=== PATIENT | female | born 1955 | race Caucasian/White ===

== ENCOUNTER → 2019-06-20 16:39 | Outpatient (BNVA) | payer OTHER, SELFPAY | PROVIDERS: Family Provider Family Medicine; PCP Family Medicine; Visit Provider Nurse Practitioner Family | DX: S62.624A Displaced fracture of middle phalanx of right ring finger, initial encounter for closed fracture (principal); X58.XXXA Exposure to other specified factors, initial encounter | CPT/HCPCS: 73130 ==

== ENCOUNTER 2019-07-06 10:32 | Outpatient (CLI) | payer OTHER, SELFPAY ==
--- NOTE | 2019-07-06 10:45 | XR_ITS ---
WS: [id number] LEFT SHOULDER: 3 VIEW(S) TECHNIQUE: Internal and external rotation with Y view. HISTORY: CONTUSION OF LEFT SHOULDER, INITIAL ENCOUNTER COMPARISON: None available. No fracture or dislocation or soft tissue abnormality. Mild narrowing of the AC joint with hypertrophic changes involving the distal clavicle. Mild atherosclerosis aorta. XR/XR shoulder LT min 2V* [id number] IMPRESSION: 1. No shoulder fracture identified. 2. Mild AC joint arthritis.
== END 2019-07-06 10:33 | disposition home or self-care (01) ==
LOC: RADWPI 10:34
PROVIDERS: Family Provider Family Medicine; PCP Family Medicine; Visit Provider Family Medicine
DX: S40.012A Contusion of left shoulder, initial encounter (principal); X58.XXXA Exposure to other specified factors, initial encounter; M13.812 Other specified arthritis, left shoulder
CPT/HCPCS: 73030

== ENCOUNTER 2019-07-26 13:21 | Outpatient (RCR) | payer OTHER, SELFPAY | END 2019-08-05 23:59 | disposition home or self-care (01) | LOC: SPT 13:21 | PROVIDERS: Family Provider Family Medicine; PCP Family Medicine; Referring Provider Family Medicine; Visit Provider Family Medicine | DX: S40.012A Contusion of left shoulder, initial encounter (principal); W19.XXXA Unspecified fall, initial encounter | CPT/HCPCS: 97110; 97162 ==

== ENCOUNTER 2019-08-06 06:00 | Outpatient (RCR) | payer OTHER, SELFPAY | END 2019-08-10 13:59 | disposition home or self-care (01) | LOC: SPT 06:00 | PROVIDERS: Family Provider Family Medicine; PCP Family Medicine; Referring Provider Family Medicine; Visit Provider Family Medicine | DX: Z01.89 Encounter for other specified special examinations (principal) ==

== ENCOUNTER 2019-12-01 06:54 | Outpatient (CLI) | payer OTHER, SELFPAY ==
--- NOTE | 2019-12-01 07:02 | CT_ITS ---
WS: [id number] CT ABDOMEN AND PELVIS WITH CONTRAST HISTORY: VOMITING TECHNIQUE: Imaging performed of the abdomen and pelvis with IV contrast. Single phase imaging of the abdomen. Coronal and sagittal reformats are submitted. All CT scans at [facility] use at least one of these dose optimization techniques: automated exposure control; mA and/or kV adjustment per patient size (includes targeted exams where dose is matched to clinical indication); or iterativ e reconstruction. IV CONTRAST: Visipaque 320; 95 mL IV. Oral contrast: Yes. DLP: 1284.99 mGy.cm COMPARISON: 07/31/2018 Lower thorax: Lung bases are clear. Heart is normal size. Moderate size hiatal hernia. Liver/biliary system: Normal size with no intrahepatic dilatation. Gallbladder: Normal. No gallstones or wall thickening. No pericholecystic fluid. Pancreas: Normal. Spleen: Normal. Adrenal glands: Normal. Right kidney: Mild atrophy of the RIGHT kidney at 8.8 cm. There are several hypodensities scattered t hroughout the renal cortex. The largest at 1.0 cm in the upper pole. No obstruction. Left kidney: Mild cortical thinning and atrophy. No mass or obstruction. Aorta: Mild atherosclerosis with no aneurysm. Lymphadenopathy: None. Free fluid: None. GI tract: Normal appendix. Prior gastric bypass surgery. No evidence for GI tract obstruction. There is mild persistent mucosal thickening involving the hepatic flexure. Neoplasm not excluded. Sigmoid d iverticulosis without diverticulitis. Abdominal wall: Unremarkable abdominal wall. No hernia. Pelvis: Prior hysterectomy. No free fluid or adenopathy. Urinary bladder is negative. Bones: Mild LEFT convex curvature lumbar spine. CT/CT abdomen pelvis w con* [id number] IMPRESSION: 1. No renal obstruction. 2. Normal appendix. 3. Prior gastric bypass. 4. Mild persistent mucosal thickening involving the hepatic flexure with no ob struction. Neoplasm is not excluded. 5. Mild renal atrophy.
[2019-12-01 07:43] LABS: Blood Urea Nitrogen 24 mg/dL (8-23); Glomerular Filtration Rate 35.3 mL/min (90-130)
[2019-12-01] MEDS: iodixanol 320 mg/mL 100mL Btl IV (08:24)
[2019-12-01] MEDS: barium sulfate 450 mL Oral Susp PO (08:57)
== END 2019-12-01 06:55 | disposition home or self-care (01) ==
LOC: RAD 06:54
PROVIDERS: PCP Family Medicine; Visit Provider Family Medicine
DX: R11.0 Nausea (principal); R11.10 Vomiting, unspecified; N26.1 Atrophy of kidney (terminal); Z98.84 Bariatric surgery status
CPT/HCPCS: 36415; 74177; 82565; 84520

== ENCOUNTER 2019-12-14 06:54 | Day surgery (SDC) | payer OTHER, MEDICARE, SELFPAY ==
[2019-12-14] VITALS (8 sets, daily range): BP systolic 135–175; BP diastolic 64–84; PULSE 45–62; RESP 14–19; TEMP 36.2–36.5; O2SAT 95–99
[2019-12-14] MEDS: sodium chloride 0.9% 1,000 ML 30 ML IV (07:33)
--- NOTE | 2019-12-14 07:34 | ANES.PREANE2 ---
Pre-Anesthetic Assessment Pre-Anesthetic Assessment: Height/Weight: Height 1.68 m Weight 90.265 kg Temp Pulse Resp BP Pulse Ox 97.5 F L 52 L 18 148/64 98 12/14/19 07:11 12/14/19 07:11 12/14/19 07:11 12/14/19 07:11 12/14/19 07:11 Proposed Procedure: Operation Date: 12/14/19 08:30 Proposed Procedures p Laparoscopic Cholecystectomy possibly open(Not Applicable) - Davide Catherine MD Last intake: Intake Last Liquid Date 12/13/19 Last Liquid Time 23:59 Last Solid Date 12/13/19 Last Solid Time 19:00 Social: Social History: No alcohol and No tobacco Exam: Pre-Anes Outpt Exam: alert, oriented x 3, clear to auscultation bilaterally and regular rate & rhythm Airway: Submandibular: WNL Cervical ROM: WNL MP: 1 Dentition: Other (mult missing) History/ROS: No significant history except as noted Pulmonary: Pulmonary: None reported CV/HEM: CV/HEM: HTN : : None reported Hepatic: Hepatic: None reported GI: GI: GERD Metabolic: Metabolic: None reported Musc/skel: Musc/skel: None reported Neuropsych: Neuropsych: Anxiety and Depression Anesthetic Plan: ASA status: 2 Anesthesia: Anesthesia Evaluation and General Risk of > 500 ml blood loss (7ml/kg in children): No Meds/Allergies Current Medications: Current Medications Generic Name Dose Route Start Last Admin Trade Name Freq PRN Reason Stop Dose Admin Sodium Chloride 1,000 mls @ 30 ml s/hr 12/14/19 07:15 12/14/19 07:33 Sodium Chloride 0.9% IV 12/15/19 07:14 30 mls/hr .Q24H JOSIAH Administration PFSH Anesthesia PFSH: Social History Smoking and tobacco status: never smoked Alcohol intake: never 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
--- NOTE | 2019-12-14 07:41 | ECG_ITS ---
[facility] Test Date: 2019-12-14 Pat Name: Lory Jean Department: Room: Gender: Female Orthopedic Assistant: : 1955 Requested By: Davide Ness Order Number: [id number] MD: Stacy Kent M.D. Measurements Intervals [place] Rate: 46 P: 81 VA: 201 QRS: 42 QRSD: 94 T: 28 QT: 486 QTc: 427 Interpretive Statements SINUS BRADYCARDIA NONSPECIFIC T-WAVE ABNORMALITY Compared to ECG 10/07/2017 13:31:59 T-wave abnormality now present Sinus rhythm no longer present Electronically Signed On 12-14-2019 17:19:15 CDT by Stacy Kent M.D. [id number]
--- NOTE | 2019-12-14 08:18 | W.PM.OPSUD ---
Surgery/Procedure H&P Update DATE OF PROCEDURE: December 14, 2019 DATE H&P PERFORMED: 12/12/19 H&P UPDATE INFORMATION: No changes to prior documentation CHANGES TO PREVIOUS DOCUMENTATION: EKG cleared by Dr. Wellington from anesthesia preoperatively. PLANNED PROCEDURE: Operation Date: 12/14/19 08:30 Proposed Procedures p Laparoscopic Cholecystectomy possibly open(Not Applicable) - Davide Catherine MD
[2019-12-14 09:19] LABS: Alanine Aminotransferase 8 U/L (0-33); Alkaline Phosphatase 173 IU/L (35-105); Aspartate Amino Transferase 14 U/L (0-32); Total Bilirubin 0.6 mg/dL (0.15-1.2)
--- NOTE | 2019-12-14 09:37 | PM.OP ---
Operative Report Date of procedure: December 14, 2019 Pre-op Diagnosis: Symptomatic cholelithiasis. Post-op diagnosis: same Procedure Done: Laparoscopic cholecystectomy. Specimens removed/disposition: Gallbladder. Surgeon: Davide Catherine Anesthesia: General Estimated blood loss (mL): 5 Complications: None. Condition: stable Disposition: PACU Procedure: The patient was brought to the Operating Room and was placed in a supine position on the Operating Room table. General endotracheal anesthesia was induced. The abdomen was prepped and draped in a sterile fashion. A small vertical incision was carried out in the inferior aspect of the umbilicus. Blunt dissection was carried out down to the fascia, which was grasped with a Bright clamp. A stay suture of 0 Vicryl was placed on either side of the midline and the midline fascia was incised. The underlying peritoneum was opened bluntly and the Tessie port was placed directly into the peritoneal cavity and was held in place with the inflatable balloon. The peritoneal cavity was insufflated with carbon dioxide. The laparoscope was used to inspect the abdominal cavity. The patient had some adhesions to the right mid abdomen which were eventually taken down. No other gross abnormalities were initially noted. A 5 millimeter port was placed in the epigastrium under direct vision. Two 5-millimeter ports were placed on the right side of the abdomen under direct vision. The gallbladder was grasped and was elevated. The patient had adhesions along the fundus and infundibular region of the gallbladder. These were all taken down using blunt dissection with some cautery to maintain hemostasis. Blunt dissection and hydrodissection were carried out in the infundibular region of the gallbladder and the cystic duct and cystic artery were identified. The gallbladder was partially removed from the liver bed using cautery and the spatula to confirm the anatomy before the structures were clipped and divided. The gallbladder was then removed from the liver bed using cautery and the spatula. After the gallbladder had been removed from the liver bed, the laparoscope was moved to the epigastric port and the gallbladder was removed from the peritoneal cavity through the umbilical port site. The stay sutures of Vicryl were tied to each other at the umbilicus. An additional sytbcr-el-efnhy suture of 0 Vicryl was placed, closing the defect so that it was airtight. The perihepatic spaces were irrigated with saline and the liver bed was reinspected. No ongoing problems were seen. The remaining ports were removed from the abdominal wall and the pneumoperitoneum was evacuated. All skin incisions were closed using inverted interrupted sutures of 4-0 Vicryl. Benzoin and Steri-Strips were placed over the incisions and Band-Aids followed. The patient was taken to the Recovery Area in stable condition postoperatively.
--- NOTE | 2019-12-14 10:06 | SUR.PHASEI ---
PT AWAKES AND DENIES PAIN AND NAUSEA, TAKING FEW ICE CHIPS PT ON RA TRIAL
[2019-12-14] MEDS: HYDROcodone-acetaminophen 5-325 mg Tablet 1 TAB PO (11:06)
== END 2019-12-14 11:50 | disposition home or self-care (01) ==
PROVIDERS: PCP Family Medicine; Visit Provider Surgery
PROC: 0FT44ZZ Resection of Gallbladder, Percutaneous Endoscopic Approach (ICD-10-PCS; CPT 47562; principal; 2019-12-14 08:30)
DX: K80.10 Calculus of gallbladder with chronic cholecystitis without obstruction (principal); I10 Essential (primary) hypertension; K21.9 Gastro-esophageal reflux disease without esophagitis; M79.7 Fibromyalgia
CPT/HCPCS: 47562; 12345; 36415; 80076; 88304; 93005; J0690; J1100; J1885; J2405; J2704; J2710; J3010; J3490; J7030

== ENCOUNTER 2020-03-08 06:08 | Day surgery (SDC) | payer OTHER, MEDICARE, SELFPAY ==
[2020-03-07 16:25] VITALS: BMI 31.9
[2020-03-08] VITALS (18 sets, daily range): BP systolic 106–175; BP diastolic 62–89; PULSE 50–69; RESP 16–22; TEMP 36.5–37.1; O2SAT 93–100
[2020-03-08] MEDS: sodium chloride 0.9% 1,000 ML 30 ML IV (06:52)
--- NOTE | 2020-03-08 07:36 | W.PM.OPSUD ---
Surgery/Procedure H&P Update DATE OF PROCEDURE: March 08, 2020 DATE H&P PERFORMED: 03/07/20 H&P UPDATE INFORMATION: I have reviewed H&P completed within last 30 days PREOP DIAGNOSIS: Nausea and vomiting PLANNED PROCEDURE: Operation Date: 03/08/20 07:30 Proposed Procedures p EGD(Not Applicable) - Jed Raymond MD
--- NOTE | 2020-03-08 07:51 | ANES.PREANE2 ---
Pre-Anesthetic Assessment Pre-Anesthetic Assessment: Height/Weight: Height 1.68 m Weight 89.811 kg Temp Pulse Resp BP Pulse Ox 98.8 F 51 L 16 135/62 100 03/08/20 06:35 03/08/20 06:35 03/08/20 06:35 03/08/20 06:35 03/08/20 06:35 Preop Diagnosis: Nausea and vomiting Proposed Procedure: Operation Date: 03/08/20 07:30 Proposed Procedures p EGD(Not Applicable) - Jed Raymond MD Was Beta [place] taken within 24 hours: Yes Last intake: Intake Last Liquid Date 03/07/20 Last Liquid Time 23:00 Last Solid Date 03/07/20 Last Solid Time 19:00 Social: Social History: No alcohol and No tobacco Exam: Pre-Anes Outpt Exam: alert, oriented x 3, clear to auscultation bilaterally and regular rate & rhythm History/ROS: No significant history except as noted and No significant complaints Pulmonary: Pulmonary: None reported CV/HEM: CV/HEM: HTN : : None reported Hepatic: Hepatic: None reported GI: GI: None reported Metabolic: Metabolic: None reported Musc/skel: Musc/skel: None reported Neuropsych: Neuropsych: None reported Anesthetic Plan: ASA status: 2 Anesthesia: MAC Risk of > 500 ml blood loss (7ml/kg in children): No Meds/Allergies Current Medications: Current Medications Generic Name Dose Route Start Last Admin Trade Name Freq PRN Reason Stop Dose Admin Sodium Chloride 1,000 mls @ 30 ml s/hr 03/08/20 06:45 03/08/20 06:52 Sodium Chloride 0.9% IV 03/09/20 06:44 30 mls/hr .Q24H JOSIAH Administration PFSH Anesthesia PFSH: Social History Smoking and tobacco status: never smoked Alcohol intake: never 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
--- NOTE | 2020-03-08 08:33 | XR_ITS ---
WS: [id number] Portable AP upright chest, 03/08/2020 Clinical Data: POST OP Comparison: Portable chest, 05/20/2019. Findings: No nodules, masses or effusions are seen. The heart is normal. The pulmonary vascularity is not increased. No pneumonia or pneumothorax is seen. Minimal atelectatic changes are seen adjacent t o the left heart border. Monitor leads on the chest wall. XR/XR chest 1V portable [id number] Impression: Negative chest.
--- NOTE | 2020-03-08 10:10 | P.CONIM_ITS ---
Providers/Reason For Consult Consulting Physican/Specialty*: Dr. Sommers Datar/Pulmonology Reason for Consult*: possible aspiration of foreign body Requesting Physcian: Debbi Martin MD Attending Physician: Jed Raymond MD Primary Care Provider: Jed Raymond MD History of Present Illness History of Present Illness Lory Jean is a 64 year old female had endoscopy today morning for nausea vomiting and found to have a large wad of in her stomach in addition to other food products. Gums stuck to endoscope and while trying to slowly pull the suddenly patient had a brief oxygen desaturations and got intubated to protect her airway. Later patient saturations improved, Postprocedure chest x-ray was normal and she was extubated. And postop anesthesia were concerned and pulmonary were consulted to make sure if there is no aspiration of gum. In the preop area patient was awake alert oriented and him denied any difficulty breathing. Examination did not reveal any significant localized wheezing. Would prefer to do a bronchoscopic inspection to to rule out aspiration of foreign body and would like to retry if anything present. Review of Systems General: Reports: 10 or more systems reviewed and unremarkable except in HPI and below Meds/Allergies Home Medications and Allergies Home Medications Medication Instructions Recorded Confirmed Last Taken Type clozapine 25 mg tablet 25 mg PO BID 06/20/19 03/08/20 03/07/20 History escitalopram oxalate 10 mg tablet 10 mg PO ONCE 06/20/19 03/08/20 03/07/20 History diphenhydramine HCl [Benadryl] 75 mg PO BEDTIME 12/13/19 03/08/20 03/07/20 History lisinopril-hydrochlorothiazide 1 tab PO DAILY 12/13/19 03/08/20 03/07/20 History propranolol 40 mg PO BID 12/13/19 03/08/20 03/07/20 History Allergies Allergy/AdvReac Type Severity Reaction Status Date / Time adhesive Allergy ALGY-Rash Verified 12/13/19 11:21 morphine Allergy ALGY-Anaphy Verified 08/09/19 09:27 laxis Penicillins Allergy ALGY-Rash Verified 08/09/19 09:27 Current Medications Current Medications Generic Name Dose Route Start Last Admin Trade Name Freq PRN Reason Stop Dose Admin Sodium Chloride 1,000 mls @ 30 mls/hr 03/08/20 06:45 03/08/20 09:41 Sodium Chloride 0.9% IV 03/09/20 06:44 Infused .Q24H JOSIAH Infusion PFSH Acute PFSH: Social History Smoking and tobacco status: never smoked Alcohol intake: never 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 Vitals/I&O/Wt Last Vital Signs Temp 98 F 03/08/20 09:15 Pulse 50 L 03/08/20 09:20 Resp 16 03/08/20 09:20 BP 175/75 03/08/20 09:20 Pulse Ox 96 03/08/20 09:20 03/07/20 03/08/20 03/08/20 22:59 06:59 14:59 Intake Total 900 / 900 Output Total 0 / 0 Balance 900 / 900 Weight last 48 hrs Weight 198 lb Physical Exam Narrative: EXAM NARRATIVE: General: alert, NAD HEENT: conj clear, EOMI, PERRL, mmm, Neck: supple, no meningismus Heme: no cervical LAP Pulmonary: CTAB, no wheezing, rhonchi, crackles Cardiovascular: rrr, nl s1s2, no mrg Abdomen: soft, nt, nd, no r/g, bs+ Extremities: pulses +, no edema, no c/c : no CVA tenderness Skin: intact, no rash MSK: no back or neck pain Neurologic: grossly intact Data Other Data: Other data: Reviewed A&P Assessment and plan (1) Foreign body aspiration: Status: Acute Qualifiers: Encounter type: initial encounter Qualified Code(s): T17.900A - Unspecified foreign body in respiratory tract, part unspecified causing asphyxiation, initial encounter Consult Attestations Medical Necessity Statement: Bronchoscopic inspection of possible aspiration of chewing gum Coding Level of Care Code New Pt Acute Telegrapher Agent for Chg Fwd Patient Type New History Comprehensive Exam Detailed Medical Decision Making Moderate Complexity Diagnoses Foreign body aspiration T17.900A Encounter type: initial encounter Time Spent (min) 30
--- NOTE | 2020-03-08 10:42 | P.MISC_ITS ---
Miscellaneous Note Purpose of Documentation: Intraoperative event Note: During patient's EGD it was determined that she had swallowed gum and gum became adhered to scope. Upon removal of scope I was told she may have had laryngospasm, but she did de-sat and this required intubation. Unfortunately patient was extubated and brought to PACU. The patient is doing well clinically in recovery, but does have some cough. I am concerned of the possibility of aspiration of bits of chewing gum. CXR is wnl, but this was obtained immediately after the event and gum is not radio-opaque. Consulted Dr. Esposito big data analytics lead and we agree best course of action is to do bronchscopy to rule out any aspiration of gum bits. Patient informed. She understands. She states she swallowed this gum last night at about 5:00 pm. Apparently this is somewhat of a habit for her. Her , at bedside, said I told you to stop doing that. Patient responded, I don't have anyone to blame but myself.
--- NOTE | 2020-03-08 13:56 | PM.OP ---
Operative Report Date of procedure: March 08, 2020 Pre-op Diagnosis: Nausea and vomiting Condition: stable Disposition: same day Procedure: BRONCHOSCOPY PROCEDURE NOTE Pre-operative diagnosis: Concern for possible aspiration of chewing gum Indication: possible aspiration of chewing gum Technical Assistant: Datar Procedure(s): Fiberoptic bronchoscopy: yes Route: Through ET tube Medications: General anesthesia as per anesthesia team Intra-operative Monitoring and treatment: Telemetry, continuous pulse oximetry, Blood pressure monitoring, Oxygen. Fluoroscopy:no Technical procedure: Flexible bronchoscopy inserted through the ET tube and distal trachea and main clarisse looked normal. Then the flexible bronchoscope passed through right mainstem, upper lobe and subsegments, bronchus intermedius, superior segment of lower lobe, all basal segments, middle lobe and subsegments visualized with flexible bronchoscopy to the most distal possible subsegments appeared normal mucosa with no foreign body material; some bronchomalacia noted in the distal airways. Scope then passed through left mainstem, upper lobe and subsegments, lingula and Subsegments, superior segment of lower lobe, all basal segments, visualized with flexible bronchoscopy to the most distal possible subsegments appeared normal mucosa with no foreign body material; mucus noted in the lingula was suctioned away and some bronchomalacia noted in the distal airways throughout. Complications: None Post-op Diagnosis: No foreign body noticed within the reach of the flexible bronchoscope used. Associated Problem List Diagnoses (1) Foreign body aspiration: Qualifiers: Encounter type: initial encounter Qualified Code(s): T17.900A - Unspecified foreign body in respiratory tract, part unspecified causing asphyxiation, initial encounter
--- NOTE | 2020-03-08 14:20 | ANE.PACU2 ---
Inpatient post-anesthesia follow up: Airway intact: Yes Vital signs: Temperature 97.7 F Pulse Rate 65 Respiratory Rate 18 Blood Pressure 165/75 Pulse Oximetry 94 Oxygen Delivery Me thod Room Air Oxygen Flow Rate 8 Fraction of Inspir ed Oxygen Hydration adequate: Yes Nausea and vomiting: No Pain level: 2 Mental status: Baseline Additional Comments: Patient tearful about her long-term symptoms of nausea and vomiting.
== END 2020-03-08 14:48 | disposition home or self-care (01) ==
PROVIDERS: Internal Medicine Pulmonary Disease; PCP Family Medicine; Visit Provider Family Medicine
PROC: 0DJ08ZZ Inspection of Upper Intestinal Tract, Via Natural or Artificial Opening Endoscopic (ICD-10-PCS; CPT 43235; principal; 2020-03-08 07:30)
PROC: 0BJ08ZZ Inspection of Tracheobronchial Tree, Via Natural or Artificial Opening Endoscopic (ICD-10-PCS; CPT 31622; principal; 2020-03-08 13:00)
DX: R11.2 Nausea with vomiting, unspecified (principal); T17.900A Unspecified foreign body in respiratory tract, part unspecified causing asphyxiation, initial encounter; K29.50 Unspecified chronic gastritis without bleeding; K31.89 Other diseases of stomach and duodenum; I10 Essential (primary) hypertension
CPT/HCPCS: 12345; 31622; 43239; 71045; 88305; J0330; J2405; J2704; J3010; J3490; J7030

== ENCOUNTER 2020-08-05 13:11 | Emergency (ER) | payer OTHER, MEDICARE, SELFPAY ==
[2020-08-05 13:16] VITALS: BP 139/67; PULSE 59; RESP 14; TEMP 36.8; O2SAT 98; BMI 31.6
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
--- NOTE | 2020-08-05 13:30 | ECG_ITS ---
[facility] Test Date: 2020-08-05 Pat Name: Lory Jean Department: Room: Gender: Female Cider Maker: : 1955 Requested By: Tenzin Mercado Order Number: [id number] Fierro MD: Silver Doyle M.D. Measurements Intervals Donora Rate: 56 P: 55 NV: 139 QRS: 67 QRSD: 91 T: 44 QT: 446 QTc: 432 Interpretive Statements SINUS RHYTHM NONSPECIFIC T-WAVE ABNORMALITY Compared to ECG 12/14/2019 07:44:05 Sinus bradycardia no longer present T-wave abnormality still present Electronically Signed On 08-05-2020 18:51:47 ESTATE PLANNING ATTORNEY by Silver Doyle M.D. [email or web address]
[2020-08-05 13:36] LABS: Basophils % 0.7 %; Eosinophils # 0.1 10^3/uL (0.0-0.8); Eosinophils % 1.7 %; Hematocrit 36.6 % (37.0-47.0); Hemoglobin 11.2 g/dL (11.5-15.3); Lymphocytes # 1.6 10^3/uL (0.8-4.8); Lymphocytes % 26.8 %; Mean Corpuscular HGB Conc 30.6 g/dL (30.0-36.0); Mean Corpuscular Hemoglobin 28.8 pg (28.0-34.0); Mean Corpuscular Volume 94.1 fL (81-99); Mean Platelet Volume 11.8 fL (7.4-10.4); Monocytes # 0.5 10^3/uL (0.2-0.9); Monocytes % 7.8 %; Neutrophils % 62.8 %; Nucleated Red Blood Cells % 0 %; Platelet Count 243 10^3/cmm (130-400); Red Blood Count 3.89 10^6/uL (4.1-5.3); Red Cell Distribution Width 13.3 % (12.1-15.1)
[2020-08-05] MEDS: LORazepam 1 mg Tablet PO (13:38)
[2020-08-05 13:40] VITALS: BP 170/73; PULSE 59; RESP 15; O2SAT 95
[2020-08-05 13:52] LABS: Alanine Aminotransferase 7 U/L (0-33); Albumin Level 4.1 g/dL (3.5-5.2); Alkaline Phosphatase 186 IU/L (35-105); Anion Gap 13.4 (5-19); Aspartate Amino Transferase 15 U/L (0-32); Blood Urea Nitrogen 18 mg/dL (8-23); Calcium 9.3 mg/dL (8.5-10.5); Carbon Dioxide 28 mmol/L (22-29); Chloride 102 mmol/L (98-107); Globulin 2.7 g/dL (1.3-4.6); Glomerular Filtration Rate 45.5 mL/min (90-130); Glucose 87 mg/dL (65-115); Osmolality Calculated 291 mOsm/kg (285-295); Potassium 3.4 mmol/L (3.5-5.1); Sodium 140 mmol/L (136-145); Total Bilirubin 0.7 mg/dL (0.15-1.2); Total Protein 6.8 g/dL (6.6-8.7)
[2020-08-05 13:58] LABS: Troponin(5th) Baseline 8 ng/L (0-10)
[2020-08-05] MEDS: sodium chloride 0.9% 500 ML 999 ML IV (14:37)
[2020-08-05] MEDS: ketorolac 30 mg/mL INJ IVP (14:40)
[2020-08-05 14:46] VITALS: BP 132/57; PULSE 59; RESP 16; O2SAT 97
[2020-08-05 15:44] LABS: Troponin 5 2HR 8.12 ng/L (0-10); Troponin 5 2HR Delta 0.12 ABS# (0-10)
[2020-08-05 15:50] VITALS: BP 132/57; PULSE 57; RESP 16; O2SAT 97
== END 2020-08-05 15:52 | disposition home or self-care (01) ==
PROVIDERS: Emergency Provider Physician Assistant; PCP Family Medicine
DX: S13.4XXA Sprain of ligaments of cervical spine, initial encounter (principal); V57.5XXA Driver of pick-up truck or van injured in collision with fixed or stationary object in traffic accident, initial encounter
CPT/HCPCS: 36415; 70450; 71045; 72125; 73130; 73562; 80053; 84484; 85025; 93005; 96374; 99284; J1885; J7040

== ENCOUNTER 2020-09-30 07:32 | Outpatient (CLI) | payer OTHER, MEDICARE, SELFPAY ==
--- NOTE | 2020-09-30 07:50 | NMCV_ITS ---
NM seth perf SPECT r/s* [id number] Lory Jean Age: 64 Gender: F : 1955 Exam Date: 09/30/2020 08:30 Ordering Phys: Silver Doyle M.D ([email or web address]) Technologist: CHAGO De La Fuente Exam Location: [facility] Indications: Chest pain STRESS TEST Please see separate stress test report in [facility] for full findings IMAGE PROTOCOL Rest/Stress 1 Lexiscan Day Radiopharmaceutical Dose (mCi) Administration Site Administered by Rest: Tc-99m 10.8 IV CHAGO De La Fuente Sestamibi Stress:Tc-99m 32.7 IV CHAGO Jimenes Sestamibi Rest: 30-Sep-2020 60 Discovery 630 Stress: 30-Sep-2020 45 Discovery 630 0.4mg Lexiscan. Images obtained in supine and prone position. SPECT RESULTS Technical Quality: Good Raw Data Analysis: Normal Image Corrections: No attenuation or motion correction applied Summed Stress Score: 0 Summed Rest Score: 0 Summed Difference Score: 0 PERFUSION FINDINGS SPECT images demonstrate homogeneous tracer distribution throughout the myocardium. FUNCTIONAL RESULTS (calculated via Gated SPECT) Stress Image LV EF (%): 72 Stress EDV (mL):81 TID: 1.07 Stress ESV (mL):23 FUNCTIONAL FINDINGS: There is normal left ventricular systolic function. IMPRESSIONS 1. Normal myocardial perfusion imaging with no evidence of ischemia 2. Normal LV systolic function Silver Doyle MD (Electronically Signed) Final Date: 30 September 2020 11:31 S
--- NOTE | 2020-09-30 07:50 | ECG_ITS ---
Test Date: 2020-09-30 Pat Name: Lory Jean Department: Room: Gender: Female Dog Track Kennel Manager: Kaelyn Bustamante : 1955 Requested By: Silver Doyle Order Number: [id number] Sri MD: Silver Doyle M.D. Interpretive Statements NAME OF STUDY: LEXISCAN SESTAMIBI STRESS TEST INDICATION: [Chest Pain] Procedure: At the baseline, the blood pressure was 126/72 mmHg with a heart rate of 45 bpm. The electrocardiogram showed normal sinus rhythm, normal axis with normal ST and T's. The Lexiscan was infused over a period of 20 seconds. A total of 0.4 mg of Lexiscan was infused. The stress phase was continued for a total of 5 minutes. Heart rate was at the end of stress phase was 67 bpm and a blood pressure of 152/76 mmHg. The EKG at the peak infusion revealed since normal sinus rhythm with no significant ST-T wave changes. Sestamibi was injected 20 seconds after the Lexiscan infusion. Blood pressure at the end of recovery phase was 142/76 mmHg with a heart rate of 65 bpm. Conclusion: 1. normal EKG response to Lexiscan infusion 2. No Lexiscan induced chest pain or cardiac arrhythmia. 3. Normal blood pressure and heart rate response. 4. Sestamibi/sestamibi perfusion scan pending; see separate report. Electronically Signed On 10-12-2020 12:04:51 CDT by Silver Doyle M.D. [id number]
[2020-09-30 07:51] VITALS: BMI 31.6
[2020-09-30 09:27] VITALS: BP 151/74; PULSE 70
[2020-09-30] MEDS: regadenoson 0.4 Mg/5 ml Syringe IVP (09:27)
== END 2020-09-30 07:33 | disposition home or self-care (01) ==
LOC: CDL 07:35
PROVIDERS: PCP Family Medicine; Visit Provider Internal Medicine
DX: R07.9 Chest pain, unspecified (principal)
CPT/HCPCS: 78452; 93017; A9500; J2785

== ENCOUNTER 2020-10-01 10:55 | Outpatient (CLI) | payer OTHER, MEDICARE, SELFPAY ==
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
== END 2020-10-01 10:56 | disposition home or self-care (01) ==
LOC: US 10:56
PROVIDERS: PCP Family Medicine; Visit Provider Internal Medicine
DX: R55 Syncope and collapse (principal); I65.23 Occlusion and stenosis of bilateral carotid arteries
CPT/HCPCS: 93880

== ENCOUNTER 2021-01-21 09:09 | Outpatient (CLI) | payer OTHER, MEDICARE, SELFPAY ==
[2021-01-21 09:44] VITALS: BP 163/85; PULSE 53; RESP 16; TEMP 36.6; O2SAT 93; BMI 31.6
[2021-01-21 09:59] VITALS: BP 163/85; PULSE 54; RESP 17; TEMP 36.6; O2SAT 93
[2021-01-21 10:56] VITALS: BP 174/83; PULSE 51; RESP 16; TEMP 36.7; O2SAT 93
--- NOTE | 2021-01-31 11:33 | DCPLANNER ---
manager cash had message that patient received the monoclonal antibody infusion. manager cash called and spoke with patient, she stated that after the infusion she is feeling better. Patient stated that before the infusion, she had cold chills, she had a cough, fever and headache. Patient stated that after the infusion she had some really rough days, she had cold chills, she had diarrhea. Patient stated that she is feeling much better.
== END 2021-01-21 09:10 | disposition home or self-care (01) ==
LOC: OPS 09:16
PROVIDERS: PCP Family Medicine; Visit Provider Family Medicine
DX: U07.1 COVID-19 (principal)
CPT/HCPCS: 96365

== ENCOUNTER → 2021-02-04 09:44 | Outpatient (BNVA) | payer OTHER, MEDICARE, SELFPAY | PROVIDERS: PCP Family Medicine; Referring Provider Family Medicine; Visit Provider Specialist | DX: R55 Syncope and collapse (principal); R42 Dizziness and giddiness; R26.9 Unspecified abnormalities of gait and mobility; G43.711 Chronic migraine without aura, intractable, with status migrainosus; S13.4XXA Sprain of ligaments of cervical spine, initial encounter; V89.0XXA Person injured in unspecified motor-vehicle accident, nontraffic, initial encounter | CPT/HCPCS: 99205 ==

== ENCOUNTER 2021-03-04 11:34 | Outpatient (CLI) | payer OTHER, MEDICARE, SELFPAY ==
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
== END 2021-03-04 11:35 | disposition home or self-care (01) ==
LOC: RADSHAW 11:38
PROVIDERS: PCP Family Medicine; Visit Provider Specialist
DX: R55 Syncope and collapse (principal); S13.4XXA Sprain of ligaments of cervical spine, initial encounter; Y93.9 Activity, unspecified
CPT/HCPCS: 70551

== ENCOUNTER → 2021-04-02 10:19 | Outpatient (BNVA) | payer MEDICARE, SELFPAY | PROVIDERS: PCP Family Medicine; Visit Provider Specialist | DX: R55 Syncope and collapse (principal) | CPT/HCPCS: 95816 ==

== ENCOUNTER 2021-11-04 07:00 | Outpatient (RCR) | payer MEDICARE, SELFPAY ==
[2021-10-28] MEDS: iron sucrose 200 MG in sodium chloride 0.9% (100 ml) 100 ML 220 MG IV (09:18)
[2021-10-28 09:45] VITALS: BP 217/79; PULSE 61; RESP 18; TEMP 36.7; O2SAT 98; BMI 29.6
--- NOTE | 2021-10-28 11:17 | PC.NURSE ---
10/27/[address] Medina's RN, Cece, no PA needed. Pt has medicare insurance.
[2021-10-31 08:25] VITALS: BP 209/83; PULSE 57; RESP 18; TEMP 36.4; O2SAT 99
[2021-10-31] MEDS: iron sucrose 200 MG in sodium chloride 0.9% (100 ml) 100 ML 220 MG IV (08:50)
[2021-11-04] MEDS: iron sucrose 200 MG in sodium chloride 0.9% (100 ml) 100 ML 220 MG IV (06:59)
[2021-11-04 07:01] VITALS: BP 191/56; PULSE 57; RESP 18; TEMP 36.6; O2SAT 96
--- NOTE | 2021-11-04 07:46 | PC.NURSE ---
From patient report, attempt to place PICC line in left arm unsuccessful last Wednesday. PICC line to right upper arm still being used without difficulty. Labs drawn yesterday with Vanc trough 17.3. Continuing with Vancomycin 1250 mg IV daily. Pt reports rash to lower legs and back. Very mild redness noted to legs. No redness noted to back. Pt states she has had 3 days worth of redness. Bianca Lainez, PT at bedside applying lymphedema wraps. Bianca states redness looks much better from Wednesday. Pt states she took some Benadryl yesterday.
== END 2021-11-04 23:59 | disposition home or self-care (01) ==
LOC: GILAB 07:00
PROVIDERS: PCP Family Medicine; Visit Provider Surgery
DX: D50.9 Iron deficiency anemia, unspecified (principal)
CPT/HCPCS: 96365; J1756

== ENCOUNTER 2021-11-10 07:19 | Outpatient (RCR) | payer MEDICARE, SELFPAY ==
[2021-11-07] MEDS: iron sucrose 200 MG in sodium chloride 0.9% (100 ml) 100 ML 220 MG IV (09:09)
[2021-11-07 09:42] VITALS: BP 205/89; PULSE 53; RESP 18; TEMP 36.9; O2SAT 95
[2021-11-10] MEDS: iron sucrose 200 MG in sodium chloride 0.9% (100 ml) 100 ML 220 MG IV (07:30)
[2021-11-10 07:32] VITALS: BP 224/76; PULSE 60; RESP 18; TEMP 36.5; O2SAT 98
== END 2021-12-04 23:59 | disposition home or self-care (01) ==
LOC: GILAB 07:19
PROVIDERS: PCP Family Medicine; Visit Provider Surgery
DX: D50.9 Iron deficiency anemia, unspecified (principal)
CPT/HCPCS: 96365; J1756

== ENCOUNTER 2021-11-23 09:52 | Emergency (ER) | payer MEDICARE, SELFPAY ==
[2021-11-23 10:15] VITALS: BP 144/80; PULSE 83; RESP 16; TEMP 37.2; O2SAT 99; BMI 30.7
--- NOTE | 2021-11-23 10:30 | CTR_ITS ---
PROCEDURE INFORMATION: Exam: CT Abdomen And Pelvis Without Contrast Exam date and time: 11/23/2021 11:26 AM Age: 65 years old Clinical indication: Abdominal/lower flank pain. Prior surgery for open abdominal wound status post hernia surgery/tummy tuck on 11/11/21. Postsurgical abdominal pain. TECHNIQUE: Imaging protocol: Computed tomography of the abdomen and pelvis without contrast. Radiation optimization: All CT scans at this facility use at least one of these dose optimization techniques: automated exposure control; mA and/or kV adjustment per patient size (includes targeted exams where dose is matched to clinical indication); or iterative reconstruction. COMPARISON: CT abdomen pelvis w con* [id number] 12/01/2019 8:08 AM RADIATION DOSE METRICS: Total DLP (mGy-cm): 1156.22 FINDINGS: Lungs: There is mild scarring and/or atelectasis at the lung bases. No pericardial effusion. The blood pool is low in attenuation relative to the cardiac muscle suggesting anemia. Small hiatal hernia. Liver: The liver is enlarged measuring 18.4 cm. There is focal fatty infiltration along the anterior aspect of the falciform ligament. Gallbladder and bile ducts: Status post cholecystectomy. Pancreas: The pancreas is unremarkable. Spleen: The spleen is enlarged measuring 13.2 cm. Adrenal glands: The adrenal glands are unremarkable. Kidneys and ureters: A renal cortical calcification is noted on the left. No hydronephrosis. Stomach and bowel: There has been prior gastric bypass. Colonic diverticulosis without evidence of acute diverticulitis. Appendix: The appendix is unremarkable. Intraperitoneal space: No free intraperitoneal air is seen. Vasculature: No abdominal aortic aneurysm. Lymph nodes: No retroperitoneal lymphadenopathy. Urinary bladder: The bladder is largely decompressed. Reproductive: There has been prior hysterectomy. Bones/joints: Hemangiomas in the T11 and L4 vertebral bodies. No acute fracture is seen. Soft tissues: The right rectus sheath hematoma measures 7.4 x 3.1 x 4.3 cm. There is a collection in the right anterior abdominal wall and right flank that contains fluid and gas. This collection measures 18.4 x 3.5 x 7.3 cm. There is a collection involving the left anterior abdominal wall and left flank that measures 21.1 x 4.2 x 8.4 cm. These collections may connect across midline. There is extensive subcutaneous edema in the surrounding soft tissues. There is a separate collection in the ventral pelvic wall on the right that measures 2.3 x 1.2 x 7.1 cm. This may represent an abscess. CT/CT abdomen pelvis wo con [id number] IMPRESSION: 1. Collections in the anterior abdominal wall and flank, bilaterally that may connect across midline. These collections are suspicious for abscesses. There is extensive surrounding edema. Minimal soft tissue gas is seen which may relate to recent surgery. 2. Separate collection in the ventral pelvic wall on the right suspicious for abscess. 3. Right rectus sheath hematoma. 4. Hepatosplenomegaly. 5. Colonic diverticulosis. 6. Probable anemia.
--- NOTE | 2021-11-23 10:35 | W.ED.WOUNDLC ---
HPI - Wound/Laceration General: Chief Complaint: Wound/Laceration Stated Complaint: bleeding Time Seen by Provider: 11/23/21 10:07 Source: patient Mode of arrival: ambulatory Limitations: no limitations History of Present Illness: 65-year-old female who had abdominal surgery on November 11 at [place] for hernia repair. States that she has noticed quite a bit of drainage from her incision. She denies any fevers she has had some slight pain she rates a 3 out of 10 denies any worsening proving factors states the drainage has been purulent in nature. Associated symptoms: Denies chills or fever(s) Review of Systems Const: Denies: fever(s), chills, body aches or change in appetite Eyes: Denies: blurry vision or eye discomfort ENMT: Denies: throat pain or dental pain Card: Denies: chest pain Resp: Denies: dyspnea GI: Reports: abdominal pain : Denies: dysuria Musc: Denies: neck pain or back pain Skin/Breast: Denies: rash Neuro: Denies: headache(s) Psych: Denies: depression Kyle/Lymph: Denies: easy bruising All/Imm: Denies: urticaria PFSH ED PFSH: Medical History Hypertension Family History Other Hypertension Social History Smoking and tobacco status: never smoked Alcohol intake: never 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 Physical Exam Const: COMMON NORMALS: patient oriented x3 HENMT: COMMON NORMALS: normocephalic and atraumatic HEAD & SCALP: normocephalic and atraumatic Eye: COMMON NORMALS: Equal, round and reactive pupils present and EOMs intact bilaterally PUPIL: Yes Equal, round and reactive pupils present Neck/C-Spine: COMMON NORMALS: full ROM and supple Chest: COMMONS NORMALS: normal inspection of the chest and normal palpation of entire chest wall Resp: COMMON NORMALS: normal respiratory effort, No retractions, No use of accessory muscles and clear to auscultation bilaterally AUSCULTATION: clear to auscultation bilaterally Cardio: COMMON NORMALS: regular rate, regular rhythm and No murmurs present (Cardio) RATE: regular rate RHYTHM: regular rhythm GI: COMMON NORMALS: Normal to inspection, nondistended, normoactive bowel sounds present, Soft to palpation, non-tender and no masses PALPATION: Yes Soft to palpation OTHER: Erythema along the abdominal wall incision with purulent drainage Extremity: COMMON NORMALS: normal to inspection and full ROM Neuro: COMMON NORMALS: patient oriented x3, moves all extremities and no focal motor deficits Psych: COMMON NORMALS: mental status grossly normal, Normal thought process present and cooperative THOUGHT PROCESS: Normal thought process present Skin: COMMON NORMALS: no rashes or lesions noted and no wounds GENERAL SKIN EXAM: no rashes or lesions noted Course Vital Signs: Vital signs: Vital Signs Temperature 98.9 F 11/23/21 10:15 Pulse Rate 83 11/23/21 10:15 Respiratory Rate 16 11/23/21 10:15 Blood Pressure 144/80 11/23/21 10:15 Pulse Oximetry 99 11/23/21 10:15 MDM - Wound/Laceration Medical Decision Making Patient presents here with drainage from her abdominal wall incision CT scan does show a likely abscess collection I spoke to patient's plastic surgeon in [place] and will transfer there for plastics along with continuing of care. Lab Data : 11/23/21 11:10 11/23/21 11:10 Radiology Impressions Abdomen/Pelvis CT 11/23/21 10:30 IMPRESSION: 1. Collections in the anterior abdominal wall and flank, bilaterally that may connect across midline. These collections are suspicious for abscesses. There is extensive surrounding edema. Minimal soft tissue gas is seen which may relate to recent surgery. 2. Separate collection in the ventral pelvic wall on the right suspicious for abscess. 3. Right rectus sheath hematoma. 4. Hepatosplenomegaly. 5. Colonic diverticulosis. 6. Probable anemia. ADDENDUM: 11/23/[address] Castillo at 11/23/2021 11:52 AM CDT. Laboratory Results WBC 5.8 10^3/uL (4.0-10.0) 11/23/21 11:10 RBC 3.50 10^6/uL (4.1-5.3) L 11/23/21 11:10 Hgb 9.7 g/dL (11.5-15.3) L 11/23/21 11:10 Hct 31.5 % (37.0-47.0) L 11/23/21 11:10 MCV 90.0 fl (81-99) 11/23/21 11:10 MCH 27.7 pg (28.0-34.0) L 11/23/21 11:10 MCHC 30.8 g/dL (30.0-36.0) 11/23/21 11:10 RDW 20.6 % (12.1-15.1) H 11/23/21 11:10 Plt Count 329 10^3/cmm (130-400) 11/23/21 11:10 MPV 10.6 fL (7.4-10.4) H 11/23/21 11:10 Neut % (Auto) 66.2 % 11/23/21 11:10 Lymph % (Auto) 16.9 % 11/23/21 11:10 [place] % (Auto) 9.1 % 11/23/21 11:10 Eos % (Auto) 6.9 % 11/23/21 11:10 Baso % (Auto) 0.7 % 11/23/21 11:10 Neut # (Auto) 3.84 10^3/uL (1.8-7.7) 11/23/21 11:10 Lymph # (Auto) 1.0 10^3/uL (0.8-4.8) 11/23/21 11:10 [place] # (Auto) 0.5 10^3/uL (0.2-0.9) 11/23/21 11:10 Eos # (Auto) 0.4 10^3/uL (0.0-0.8) 11/23/21 11:10 Baso # (Auto) 0.0 10^3/uL (0.0-0.1) 11/23/21 11:10 Nucleated RBC % (auto) 0 % 11/23/21 11:10 Nucleated RBCs # 0.0 /100WBC 11/23/21 11:10 Sodium 139 mmol/L (136-145) 11/23/21 11:10 Potassium 3.5 mmol/L (3.5-5.1) 11/23/21 11:10 Chloride 103 mmol/L (98-107) 11/23/21 11:10 Carbon Dioxide 28 mmol/L (22-29) 11/23/21 11:10 Anion Gap 11.5 (5-19) 11/23/21 11:10 BUN 14 mg/dL (8-23) 11/23/21 11:10 Creatinine 1.0 mg/dL (0.5-0.9) H 11/23/21 11:10 GFR Calculation 56.0 mL/min (90-130) L 11/23/21 11:10 Glucose 91 mg/dL (65-115) 11/23/21 11:10 Calculated Osmolality 288 mOsm/kg (285-295) 11/23/21 11:10 Calcium 8.3 mg/dL (8.5-10.5) L 11/23/21 11:10 Total Bilirubin 0.6 mg/dL (0.15-1.2) 11/23/21 11:10 AST 12 U/L (0-32) 11/23/21 11:10 ALT 9 U/L (0-33) 11/23/21 11:10 Alkaline Phosphatase 168 IU/L (35-105) H 11/23/21 11:10 Total Protein 6.2 g/dL (6.6-8.7) L 11/23/21 11:10 Albumin 3.1 g/dL (3.5-5.2) L 11/23/21 11:10 Globulin 3.1 g/dL (1.3-4.6) 11/23/21 11:10 Discharge Plan Discharge Patient Disposition: Xfer Short-Term Hosp Clinical Impression: Abscess of postoperative wound of abdominal wall Condition: Stable Referrals: Jed Raymond MD [Primary Care Provider] - Coding Level of Care Code ED Javascript Engineer for Chg Fwd Exam Comprehensive
[2021-11-23 11:19] LABS: Basophils % 0.7 %; Eosinophils # 0.4 10^3/uL (0.0-0.8); Eosinophils % 6.9 %; Hematocrit 31.5 % (37.0-47.0); Hemoglobin 9.7 g/dL (11.5-15.3); Lymphocytes % 16.9 %; Mean Corpuscular HGB Conc 30.8 g/dL (30.0-36.0); Mean Corpuscular Hemoglobin 27.7 pg (28.0-34.0); Mean Platelet Volume 10.6 fL (7.4-10.4); Monocytes # 0.5 10^3/uL (0.2-0.9); Monocytes % 9.1 %; Neutrophils # 3.84 10^3/uL (1.8-7.7); Neutrophils % 66.2 %; Nucleated Red Blood Cells % 0 %; Platelet Count 329 10^3/cmm (130-400); Red Cell Distribution Width 20.6 % (12.1-15.1); White Blood Count 5.8 10^3/uL (4.0-10.0)
[2021-11-23 11:38] LABS: Alanine Aminotransferase 9 U/L (0-33); Albumin Level 3.1 g/dL (3.5-5.2); Alkaline Phosphatase 168 IU/L (35-105); Anion Gap 11.5 (5-19); Aspartate Amino Transferase 12 U/L (0-32); Blood Urea Nitrogen 14 mg/dL (8-23); Calcium 8.3 mg/dL (8.5-10.5); Carbon Dioxide 28 mmol/L (22-29); Chloride 103 mmol/L (98-107); Globulin 3.1 g/dL (1.3-4.6); Glucose 91 mg/dL (65-115); Osmolality Calculated 288 mOsm/kg (285-295); Potassium 3.5 mmol/L (3.5-5.1); Sodium 139 mmol/L (136-145); Total Bilirubin 0.6 mg/dL (0.15-1.2); Total Protein 6.2 g/dL (6.6-8.7)
[2021-11-23] MEDS: vancomycin 1,000 MG in sodium chloride 0.9% 250 ML 250 MG IV (12:03)
== END 2021-11-23 15:41 | disposition short-term general hospital (02) ==
PROVIDERS: Emergency Provider Emergency Medicine; PCP Family Medicine
DX: T81.41XA Infection following a procedure, superficial incisional surgical site, initial encounter (principal); L02.211 Cutaneous abscess of abdominal wall; I10 Essential (primary) hypertension
CPT/HCPCS: 74176; 80053; 85025; 96365; 99285; J3370; J7050

== ENCOUNTER → 2021-12-03 14:41 | Outpatient (BNVA) | payer MEDICARE, SELFPAY | PROVIDERS: PCP Family Medicine; Visit Provider Clinical Nurse Specialist Adult Health | DX: T14.8XXA Other injury of unspecified body region, initial encounter (principal); L08.9 Local infection of the skin and subcutaneous tissue, unspecified; X58.XXXA Exposure to other specified factors, initial encounter | CPT/HCPCS: 80053; 85025; 85651; 86140 ==

== ENCOUNTER → 2022-05-06 11:36 | Outpatient (BNVA) | payer MEDICARE, SELFPAY | PROVIDERS: PCP Clinical Nurse Specialist Adult Health; Visit Provider Clinical Nurse Specialist Adult Health | DX: J02.9 Acute pharyngitis, unspecified (principal); J20.9 Acute bronchitis, unspecified; G20 Parkinson's disease; J02.0 Streptococcal pharyngitis; M62.838 Other muscle spasm; L82.1 Other seborrheic keratosis; F41.1 Generalized anxiety disorder | CPT/HCPCS: 87400; 87880 ==

== ENCOUNTER → 2022-06-10 10:57 | Outpatient (BNVA) | payer MEDICARE, SELFPAY | PROVIDERS: PCP Clinical Nurse Specialist Adult Health; Visit Provider Clinical Nurse Specialist Adult Health | DX: M54.50 Low back pain, unspecified (principal); N30.01 Acute cystitis with hematuria | CPT/HCPCS: 81000 ==

== ENCOUNTER 2022-08-08 11:11 | Outpatient (CLI) | payer MEDICARE, SELFPAY ==
--- NOTE | 2022-08-08 11:25 | XRR_ITS ---
PROCEDURE INFORMATION: Exam: XR Right Knee Exam date and time: 08/08/2022 11:26 AM Age: 66 years old Clinical indication: Injury or trauma; Fall; Blunt trauma; Knee; Right; Additional info: Right knee injury TECHNIQUE: Imaging protocol: Radiologic exam of the right knee. Views: 3 views. COMPARISON: No relevant prior studies available. FINDINGS: Bones/joints: No fracture or dislocation. There is mild degenerative changes of the right knee, manifested by joint space narrowing and periarticular osteophytes. Soft tissues: Normal. XR/XR knee RT 3V* [id number] IMPRESSION: 1. No fracture or dislocation. 2. Mild osteoarthrosis.
== END 2022-08-08 11:12 | disposition home or self-care (01) ==
PROVIDERS: PCP Clinical Nurse Specialist Adult Health; Visit Provider Emergency Medicine
DX: S89.91XA Unspecified injury of right lower leg, initial encounter (principal); W19.XXXA Unspecified fall, initial encounter; M17.11 Unilateral primary osteoarthritis, right knee
CPT/HCPCS: 73562

== ENCOUNTER → 2022-08-10 09:24 | Outpatient (BNVA) | payer MEDICARE, SELFPAY | PROVIDERS: PCP Clinical Nurse Specialist Adult Health; Visit Provider Clinical Nurse Specialist Adult Health | DX: G20 Parkinson's disease (principal); N30.01 Acute cystitis with hematuria | CPT/HCPCS: 81000; 87086 ==

== ENCOUNTER 2023-01-19 07:50 | Outpatient (RCR) | payer MEDICARE, SELFPAY | END 2023-02-04 23:59 | disposition home or self-care (01) | LOC: SPT 07:50 | PROVIDERS: PCP Clinical Nurse Specialist Adult Health; Visit Provider Psychiatry & Neurology Neurology | DX: R26.9 Unspecified abnormalities of gait and mobility (principal) | CPT/HCPCS: 97110; 97116; 97161 ==

== ENCOUNTER 2023-02-05 06:00 | Outpatient (RCR) | payer MEDICARE, SELFPAY | END 2023-03-06 23:59 | disposition home or self-care (01) | LOC: SPT 06:00 | PROVIDERS: PCP Clinical Nurse Specialist Adult Health; Visit Provider Psychiatry & Neurology Neurology | DX: R26.9 Unspecified abnormalities of gait and mobility (principal) | CPT/HCPCS: 97110 ==

== ENCOUNTER 2023-02-19 09:00 | Outpatient (CLI) | payer MEDICARE, SELFPAY ==
--- NOTE | 2023-02-19 09:07 | XR_ITS ---
WS: [id number] Exam: XR wrist LT min 3V* [id number] Date/Time of Exam: 02/19/2023 9:11 AM Reason For Exam: pain in left medial wrist No fracture or dislocation. Mild degenerative narrowing of the radiocarpal joint. Degenerative change at the articulation of the scaphoid and greater and lesser multangular. Osteopenia. IMPRESSION: 1. Degenerative change and osteopenia. No fracture or other significant finding.
== END 2023-02-19 09:01 | disposition home or self-care (01) ==
PROVIDERS: PCP Clinical Nurse Specialist Adult Health; Visit Provider Clinical Nurse Specialist Adult Health
DX: M19.032 Primary osteoarthritis, left wrist (principal); M85.832 Other specified disorders of bone density and structure, left forearm; M25.532 Pain in left wrist
CPT/HCPCS: 73110; 80053; 80061; 84443; 85025

== ENCOUNTER 2023-04-08 11:16 | Outpatient (CLI) | payer MEDICARE, SELFPAY ==
--- NOTE | 2023-04-08 11:23 | XRR_ITS ---
PROCEDURE INFORMATION: Exam: XR Left Hand Exam date and time: 04/08/2023 11:32 AM Age: 67 years old Clinical indication: Injury or trauma; Fall; Blunt trauma (contusions or hematomas); Hand; Left; Injury date: 04/08/23; Additional info: Left hand pain after a fall TECHNIQUE: Imaging protocol: Radiologic exam of the left hand. Views: 3 or more views. COMPARISON: CR XR hand LT min 3V* [id number] 08/09/2020 1:04 PM FINDINGS: Bones/joints: Osteopenia. Degenerative changes involving the small joints of the fingers. No fracture. Soft tissues: Normal. XR/XR hand LT min 3V* [id number] IMPRESSION: No acute findings.
== END 2023-04-08 11:17 | disposition home or self-care (01) ==
PROVIDERS: PCP Clinical Nurse Specialist Adult Health; Visit Provider Clinical Nurse Specialist Adult Health
DX: M79.642 Pain in left hand (principal); W19.XXXA Unspecified fall, initial encounter
CPT/HCPCS: 73130

== ENCOUNTER → 2023-04-12 14:09 | Outpatient (BNVA) | payer MEDICARE, SELFPAY | PROVIDERS: PCP Clinical Nurse Specialist Adult Health; Visit Provider Nurse Practitioner Family | DX: M79.642 Pain in left hand (principal) | CPT/HCPCS: 73130 ==

== ENCOUNTER → 2023-05-11 14:04 | Outpatient (BNVA) | payer MEDICARE, SELFPAY | PROVIDERS: PCP Clinical Nurse Specialist Adult Health; Visit Provider Internal Medicine | DX: I15.8 Other secondary hypertension (principal); R55 Syncope and collapse; R07.9 Chest pain, unspecified | CPT/HCPCS: 99214 ==

== ENCOUNTER 2023-05-21 07:52 | Outpatient (CLI) | payer MEDICARE, SELFPAY ==
--- NOTE | 2023-05-21 08:00 | USCV_ITS ---
Lory Jean Age: 67 Gender: F : 1955 Exam Date: 05/21/2023 08:51 Ordering Phys: Silver Doyle M.D ([email or web address]) Technologist: [place] [facility] [place]: pt feeling something pulsitile in rt neck, tia Risk Factors: Previous Vascular Surgery: Right Brachial BP: / Left Brachial BP: / Right Left Velocity (cm/s) Spectral Plaque Velocity (cm/s) Spectral Plaque Syst/Diast Broadening Syst/Diast Broadening 65.90/ 13.60 Prox CCA 64.20 / 12.60 58.40/ 15.60 Mid CCA 61.40 / 13.70 58.10/ 17.90 Distal CCA 59.50 / 14.70 48.40/ 16.40 Prox ICA 53.10 / 14.70 81.20/ 22.30 Mid ICA 73.00 / 21.10 84.00/ 29.70 Distal ICA 72.10 / 22.10 77.50 ECA 59.50 1.28 ICA/CCA 1.14 Antegrade Vertebral Antegrade 50.00/ 15.40 cm/s 55.70/ 19.20 cm/s Bi Subclavian Bi 95.20 98.00 FINDINGS no stenosis, pt feeling something pulsitile in rt neck f/u with thyroid us maybe needed CONCLUSIONS Right ICA stenosis <50%. Mild atheromatous plaque right carotid bulb/ICA. Left ICA stenosis <50%. Mild atheromatous plaque left carotid bulb/ICA. Partially visualized thyroid nodules. Recommend dedicated thyroid ultrasound Normal antegrade Doppler flow noted in the right vertebral artery. Normal antegrade Doppler flow noted in the left vertebral artery. . Gary Barrios MD (Electronically Signed) Final Date: 21 May 2023 16:19 S
--- NOTE | 2023-05-21 08:30 | USCV_ITS ---
Lory Jean Age: 67 Gender: F : 1955 Exam Date: 05/21/2023 08:20 Ordering Phys: Silver Doyle M.D ([email or web address]) Technologist: CT Exam Location: [place] Indication: cp/sob BP: 139 / 69 HR: 61 Rhythm: Sinus Technical Quality: Adequate MEASUREMENTS (Male / Female) Normal Values 2D ECHO LVOT Diameter 2.1 cm LV Ejection Fraction MOD 2C 54.3 % LV Ejection Fraction 2C AL 52.6 % LA Diameter 4.1 cm LA Width 0.0 cm Aorta at Sinotubular Diameter 2.5 cm IVC Diameter 1.8 cm M-MODE Aortic Annulus Diameter 3.0 cm LA Ao Ratio MM 1.6 MV E Point Septal Separation 0.5 cm DOPPLER AV Peak Velocity 139.0 cm/s LVOT Peak Velocity 109.0 cm/s AV Area Cont Eq vti 2.7 cm squared AV Area Cont Eq pk 2.6 cm squared MV Area PHT 5.0 cm squared Mitral E to A Ratio 1.1 MV E' Velocity 61.0 cm/s Mitral E to MV E' Ratio 16.3 Mitral E to LV E' Lateral Ratio 14.8 Mitral E to LV E' Septal Ratio 18.4 TR Peak Velocity 127.0 cm/s TR Peak Gradient 6.5 mmHg TV Peak E Velocity 76.0 cm/s Right Atrial Pressure 3.0 mmHg Pulmonary Artery Systolic Pressu 9.5 mmHg PV Peak Velocity 99.0 cm/s FINDINGS Left Ventricle Left ventricle is normal size. LV systolic function is normal with EF 50 to 55%. No regional wall motion abnormalities are seen. Right Ventricle Normal in size and function Right Atrium Normal in size Left Atrium Severely dilated Mitral Valve Moderate mitral annular calcification seen. Mild mitral regurgitation Aortic Valve Structurally normal aortic valve. No significant stenosis or regurgitation. Tricuspid Valve Trace tricuspid regurgitation. Insufficient TR jet to evaluate RVSP. Pulmonic Valve Not well visualized Pericardium Normal Aorta Normal in size IVC Appears to be normal CONCLUSIONS LV systolic function is normal with EF 50 to 55%. Severely dilated left atrium Mild mitral regurgitation Trace tricuspid regurgitation Compared to prior echocardiogram from 2014, no significant changes are seen Silver Doyle MD (Electronically Signed) Final Date: 29 May 2023 11:02 S
== END 2023-05-21 07:53 | disposition home or self-care (01) ==
LOC: RAD 07:53
PROVIDERS: PCP Clinical Nurse Specialist Adult Health; Visit Provider Internal Medicine
DX: I65.23 Occlusion and stenosis of bilateral carotid arteries (principal); R06.02 Shortness of breath; R07.9 Chest pain, unspecified; E04.2 Nontoxic multinodular goiter; I34.0 Nonrheumatic mitral (valve) insufficiency
CPT/HCPCS: 93306; 93880

== ENCOUNTER 2023-07-07 11:47 | Emergency (ER) | payer MEDICARE, SELFPAY ==
--- NOTE | 2023-07-07 11:56 | ECG_ITS ---
[facility] Test Date: 2023-07-07 Pat Name: Lory Jean Department: Room: Gender: Female Core Cutter: : 1955 Requested By: Jesus Manuel Marina Order Number: [id number] Sri MD: Silver Doyle M.D. Measurements Intervals [place] Rate: 58 P: 103 TN: 170 QRS: 56 QRSD: 90 T: 45 QT: 434 QTc: 428 Interpretive Statements SINUS BRADYCARDIA Compared to ECG 08/05/2020 13:17:11 Sinus rhythm no longer present T-wave abnormality no longer present Electronically Signed On 07-07-2023 18:30:29 FITTING ROOM OPERATOR by Silver Doyle M.D. [id number]
--- NOTE | 2023-07-07 11:56 | XRR_ITS ---
PROCEDURE INFORMATION: Exam: XR Chest Exam date and time: 07/07/2023 12:13 PM Age: 67 years old Clinical indication: Cough and dyspnea; Additional info: Dyspnea/cough TECHNIQUE: Imaging protocol: Radiologic exam of the chest. Views: 1 view. COMPARISON: CR XR chest 1V portable [id number] 08/05/2020 1:41 PM FINDINGS: Lungs: Unremarkable. No consolidation or mass. Pleural spaces: Unremarkable. No pleural effusion. No pneumothorax. Heart/Mediastinum: Mild cardiomegaly is noted. Bones/joints: Unremarkable. XR/XR chest 1V portable [id number] IMPRESSION: I see no acute abnormality. Stable cardiomegaly
[2023-07-07 12:16] VITALS: BP 213/103; PULSE 64; TEMP 36.6; O2SAT 98; BMI 34.9
[2023-07-07 12:32] VITALS: BP 220/160
[2023-07-07 12:42] LABS: Basophils % 0.3 %; Eosinophils # 0.1 10^3/uL (0.0-0.8); Eosinophils % 1.9 %; Hematocrit 35.3 % (36-47); Lymphocytes # 1.5 10^3/uL (0.8-4.8); Mean Corpuscular HGB Conc 30.3 g/dL (30-55); Mean Corpuscular Hemoglobin 29.2 pg (27-33); Mean Corpuscular Volume 96.4 fl (85-98); Mean Platelet Volume 10.8 fL (7.4-10.4); Monocytes # 0.4 10^3/uL (0.2-0.9); Monocytes % 6.5 %; Neutrophils # 3.78 10^3/uL (1.8-7.7); Neutrophils % 65.1 %; Nucleated Red Blood Cells % 0 %; Platelet Count 197 10^3/cmm (157-399); Red Blood Count 3.66 10^6/uL (3.85-5.65); Red Cell Distribution Width 13.5 % (12.1-15.1); White Blood Count 5.81 10^3/uL (3.29-11.43)
[2023-07-07 12:57] LABS: Alanine Aminotransferase 9 U/L (0-33); Albumin Level 3.7 g/dL (3.5-5.2); Alkaline Phosphatase 267 U/L (35-105); Aspartate Amino Transferase 16 U/L (0-32); Blood Urea Nitrogen 15 mg/dL (8-23); Calcium 8.4 mg/dL (8.5-10.5); Carbon Dioxide 25 mmol/L (22-29); Chloride 106 mmol/L (98-107); Globulin 2.7 g/dL (1.3-4.6); Glomerular Filtration Rate 62.8 mL/min (90-130); Glucose 88 mg/dL (65-115); Osmolality Calculated 292 mOsm/kg (285-295); Sodium 141 mmol/L (136-145); Total Bilirubin 0.4 mg/dL (0.15-1.2); Total Protein 6.4 g/dL (6.6-8.7)
--- NOTE | 2023-07-07 13:01 | ED_ITS ---
HPI - Recheck/Abnormal Lab/Rx 2 General: Chief Complaint: Recheck/Abnormal Lab/Rx Stated Complaint: elevated bp Time Seen by Provider: 07/07/23 13:01 History of Present Illness: 67-year-old female comes in today for co mplaints of elevated blood pressure. Patient was at her primary care office and was referred to the ER due to blood pressure being as high as 220 systolic. Patient has a history of hypertension which is controlled with 50 mg of losartan. Patient also takes clonazepam 2 mg at bedtime, escitalopram 20 mg daily, and primidone 50 mg twice daily. Patient appears nontoxic. Patient reports occasional headache. Patient moves all extremities well. Patient has a essential tremor. Review of Systems 2 General: Reports: 10 or more systems reviewed and unremarkable except in HPI and below PFSH ED 2 PFSH: Medical History Essential tremor Generalized osteoarthritis Hx of suicide attempt Chronic headaches Generalized anxiety disorder Abdominal hernia Hiatal hernia Hypertension Surgical History History of left knee replacement Hx of tonsillectomy Hx of hysterectomy Hx of cholecystectomy Hx of gastric bypass Family History Other Hypertension Social History Smoking and tobacco/nicotine status: never used tobacco/nicotine Alcohol intake: never Substance/Drug Use: never Physical Exam 2 Const: COMMON NORMALS: alert HENMT: COMMON NORMALS: normocephalic HEAD & SCALP: normocephalic THROAT: posterior oropharynx normal Neck/C-Spine: COMMON NORMALS: full ROM Resp: COMMON NORMALS: normal respiratory effort and clear to auscultation bilaterally AUSCULTATION: clear to auscultation bilaterally Cardio: COMMON NORMALS: regular rate and regular rhythm RATE: regular rate RHYTHM: regular rhythm GI: COMMON NORMALS: non-tender : COMMON NORMALS: Yes no CVA tenderness BLADDER/KIDNEY EXAM: Yes no CVA tenderness Back/Pelvis: COMMON NORMALS: no CVA tenderness Extremity: COMMON NORMALS: normal to inspection and no pedal edema Neuro: SENSORIUM/ORIENTATION: Yes alert Skin: COMMON NORMALS: turgor normal GENERAL SKIN EXAM: turgor normal Course 2 ED course: 1437, patient continues to have a headac he. Last blood pressure was 212 systolic after 10 mg of hydralazine. Patient will be treated for headache with 15 of Toradol, 4 of Zofran, and 6 of dexamethasone. Metoclopramide was not given due to patient's history of essential tremors. No focal neural deficits noted. No weakness, or change in speech pattern. Vital Signs: Vital signs: Vital Signs Temperature 97.8 F 07/07/23 12:16 Pulse Rate 58 L 07/07/23 13:19 Blood Pressure 180/83 07/07/23 15:52 Pulse Oximetry 97 07/07/23 13:19 Oxygen Delivery Me thod Room Air 07/07/23 13:19 MDM - Recheck/Abnormal Lab/Rx Medical Decision Making 67-year-old female comes in today with poor control of blood pressure. Patient's blood pressure was 220 systolic at the doctor's office and referred to the ER for concerns of hypertensive crisis. On exam patient is alert and oriented. No focal neurodeficits. Patient moves all extremities well. No edema is noted. Lungs are clear to auscultation. Heart rates regular. Differential diagnosis includes not limited to malignant hypertension, hypertension urgency, uncontrolled hypertension, CHF, ADDY. CBC and CMP were unremarkable except for some elevation in alkaline phosphatase of 260. Chest x- ray was normal except for some stable cardiomegaly. Patient was given a total of 20 mg of hydralazine with improvement of blood pressure down to 180/120. We will increase patient's losartan to 100 mg daily. Patient was given extra losartan 50 mg in the ER prior to discharge. Patient was also treated for her headache with ketorolac 15, dexamethasone 6, and 4 of Zofran. Patient had minimal improvement and was given 25 of fentanyl with more improvement of headache. Lab Data 07/07/23 12:33 07/07/23 12:33 Radiology Impressions Chest X-Ray 07/07/23 11:56 IMPRESSION: I see no acute abnormality. Stable cardiomegaly Laboratory Results WBC 5.81 10^3/uL (3.29-11.43) 07/07/23 12:33 RBC 3.66 10^6/uL (3.85-5.65) L 07/07/23 12:33 Hgb 10.70 g/dL (11.27-16.99) L 07/07/23 12:33 Hct 35.3 % (36-47) L 07/07/23 12:33 MCV 96.4 fl (85-98) 07/07/23 12:33 MCH 29.2 pg (27-33) 07/07/23 12: MCHC 30.3 g/dL (30-55) 07/07/23 12:33 RDW 13.5 % (12.1-15.1) 07/07/23 12:33 Plt Count 197 10^3/cmm (157-399) 07/07/23 12: MPV 10.8 fL (7.4-10.4) H 07/07/23 12:33 Neut % (Auto) 65.1 % 07/07/23 12: Lymph % (Auto) 26.0 % 07/07/23 12: [place] % (Auto) 6.5 % 07/07/23 12:33 Eos % (Auto) 1.9 % 07/07/23 12:33 Baso % (Auto) 0.3 % 07/07/23 12:33 Neut # (Auto) 3.78 10^3/uL (1.8-7.7) 07/07/23 12: Lymph # (Auto) 1.5 10^3/uL (0.8-4.8) 07/07/23 12:33 [place] # (Auto) 0.4 10^3/uL (0.2-0.9) 07/07/23 12:33 Eos # (Auto) 0.1 10^3/uL (0.0-0.8) 07/07/23 12:33 Baso # (Auto) 0.0 10^3/uL (0.0-0.1) 07/07/23 12:33 Nucleated RBC % (auto) 0 % 07/07/23 12: Nucleated RBCs # 0.0 /100WBC 07/07/23 12:33 Sodium 141 mmol/L (136-145) 07/07/23 12:33 Potassium 4.0 mmol/L (3.5-5.1) 07/07/23 12:33 Chloride 106 mmol/L (98-107) 07/07/23 12:33 Carbon Dioxide 25 mmol/L (22-29) 07/07/23 12:33 Anion Gap 14.0 (5-19) 07/07/23 12:33 BUN 15 mg/dL (8-23) 07/07/23 12:33 Creatinine 0.9 mg/dL (0.5-0.9) 07/07/23 12:33 GFR Calculation 62.8 mL/min (90-130) L 07/07/23 12:33 Glucose 88 mg/dL (65-115) 07/07/23 12:33 Calculated Osmolality 292 mOsm/kg (285-295) 07/07/23 12:33 Calcium 8.4 mg/dL (8.5-10.5) L 07/07/23 12:33 Total Bilirubin 0.4 mg/dL (0.15-1.2) 07/07/23 12:33 AST 16 U/L (0-32) 07/07/23 12:33 ALT 9 U/L (0-33) 07/07/23 12:33 Alkaline Phosphatase 267 U/L (35-105) H 07/07/23 12:33 Total Protein 6.4 g/dL (6.6-8.7) L 07/07/23 12:33 Albumin 3.7 g/dL (3.5-5.2) 07/07/23 12:33 Globulin 2.7 g/dL (1.3-4.6) 07/07/23 12:33 All radiology interpretation(s) finalized by discharge Discharge Plan Discharge Patient Disposition: Home Clinical Impression: Hypertension Qualifiers: Hypertension type: other secondary hypertension Qualified Code(s): I15.8 - Other secondary hypertension Condition: Stable Prescriptions: New losartan 100 mg tablet 100 mg PO DAILY Qty: 30 0RF Discontinued losartan 50 mg tablet 50 mg PO QPM No Action primidone 50 mg tablet 50 mg PO BID Patient Comments: states she is taking 100 mg at night only clonazepam 1 mg tablet 2 mg PO BEDTIME Qty: 60 1RF escitalopram oxalate 20 mg tablet 20 mg PO QPM Discharge Orders: Discharge ED (Routine); Ordered 07/07/23 Ordered By: Vaughn Watson Referrals: Timur Fernandes GUTTER MOUTH CUTTER [Primary Care Provider] - Discharge Diet: Usual diet Discharge Activity: Increase activity as tolerated Patient Instructions: Hypertension (ED) Activity Restrictions/Additional Instructions: Increase losartan to 100 mg daily. Follow-up with primary care in 3 to 5 days for recheck. Return to ER for new concerns or worsening symptoms such as severe headache, nausea vomiting, shortness of breath, or severe chest pain. Coding Level of Care Code ED Business Insight And Analytics Manager for Massiel Bonilla
[2023-07-07] MEDS: hyDRALAzine 20 mg/mL INJ 1 mL 10 MG IVP ×2 (13:18→14:05)
[2023-07-07 13:19] VITALS: BP 240/120; PULSE 58; O2SAT 97
[2023-07-07] MEDS: ketorolac 30 mg/mL INJ 15 MG IVP (14:45)
[2023-07-07] MEDS: dexamethasone 10 mg/mL INJ 6 MG IVP (14:51)
[2023-07-07] MEDS: ondansetron 2 mg/ML SDV 2 mL 4 MG IVP (14:51)
[2023-07-07 14:52] VITALS: BP 180/120
[2023-07-07 15:52] VITALS: BP 180/83
== END 2023-07-07 15:55 | disposition home or self-care (01) ==
PROVIDERS: Family Medicine; Emergency Provider Nurse Practitioner Family; PCP Clinical Nurse Specialist Adult Health
DX: I15.8 Other secondary hypertension (principal)
CPT/HCPCS: 36415; 71045; 80053; 85025; 93005; 96374; 96375; 96376; 99285; J0360; J1100; J1885; J2405

== ENCOUNTER → 2023-07-12 10:30 | Outpatient (BNVA) | payer MEDICARE, SELFPAY | PROVIDERS: PCP Clinical Nurse Specialist Adult Health; Visit Provider Clinical Nurse Specialist Adult Health | DX: I10 Essential (primary) hypertension (principal) | CPT/HCPCS: 84436; 84443; 84481 ==

== ENCOUNTER 2023-07-22 13:43 | Outpatient (CLI) | payer MEDICARE, SELFPAY ==
--- NOTE | 2023-07-22 14:00 | US_ITS ---
WS: [id number] THYROID ULTRASOUND HISTORY: thyroid noduels seen on carotid US COMPARISON: Carotid ultrasound 05/21/2023 Right lobe: 1.8 cm x 1.4 cm x 3.3 cm (w x ap x l). Volume: 3.8 cm3. Normal size gland. There are several small nodules within the gland. The largest measures 0.8 x 0.9 x 1.0 cm. Nonspecific nodule. No echogenic foci. This nodule abuts the posterior inferior thyroid. Left lobe: 2.0 cm x 1.0 cm x 3.6 cm (w x ap x l). Volume: 2.8 cm3. Small gland. Hypoechoic nodule in the mid gland measures 0.8 x 0.9 x 1.4 cm. Isoechoic nodule with hy poechoic border. No echogenic foci and no increased vascularity. Isthmus: 0.4 cm. IMPRESSION: TI-RADS 3; bilateral thyroid nodules. Recommend yearly ultrasound thyroid evaluation by ultrasound.
== END 2023-07-22 13:44 | disposition home or self-care (01) ==
LOC: RAD 13:43
PROVIDERS: PCP Clinical Nurse Specialist Adult Health; Visit Provider Clinical Nurse Specialist Adult Health
DX: I10 Essential (primary) hypertension (principal); E04.2 Nontoxic multinodular goiter
CPT/HCPCS: 76536

== ENCOUNTER → 2023-07-30 09:08 | Outpatient (BNVA) | payer MEDICARE, SELFPAY | PROVIDERS: PCP Clinical Nurse Specialist Adult Health; Visit Provider Nurse Practitioner Family | DX: I15.8 Other secondary hypertension (principal) | CPT/HCPCS: 99213 ==

== ENCOUNTER → 2023-12-20 11:36 | Outpatient (BNVA) | payer MEDICARE, SELFPAY | PROVIDERS: PCP Clinical Nurse Specialist Adult Health; Visit Provider Clinical Nurse Specialist Adult Health | DX: E04.1 Nontoxic single thyroid nodule (principal); I15.8 Other secondary hypertension | CPT/HCPCS: 80053; 83880; 84439; 84443; 85025 ==

== ENCOUNTER 2024-01-25 13:07 | Outpatient (CLI) | payer MEDICARE, SELFPAY ==
--- NOTE | 2024-01-25 13:00 | XR_ITS ---
WS: [id number] SCREENING DEXA SCAN [employer] CLINICAL INFORMATION: post menopausal testing for osteoporosis COMPARISON: None. FINDINGS: The L1-L4 bone mineral density measures 0.769 g/cm2. This corresponds to a T score score of -3.4 and Z score of -2.8. Left femoral neck bone mineral density measures 0.751 g/cm2. This corresponds to a T score of -2.0 an d Z score of -1.5. Right femoral neck bone mineral density measures 0.743 g/cm2. This corresponds to a T score -2.1of an d Z score of -1.5. Mean femoral neck bone mineral density measures 0.747 g/cm2. This corresponds to a T score of -2.1 an d Z score of -1.5. XR/XR DEXA axial skeleton* [id number] IMPRESSION: Osteoporosis lumbar spine. Osteopenia femoral necks. Patient's FRAX calculated 10 year probability for major osteoporotic fracture i s 22.2% and osteoporotic hip fracture is 4.0%.
== END 2024-01-25 13:08 | disposition home or self-care (01) ==
LOC: RAD 13:08
PROVIDERS: PCP Clinical Nurse Specialist Adult Health; Visit Provider Clinical Nurse Specialist Adult Health
DX: Z78.0 Asymptomatic menopausal state (principal); E83.51 Hypocalcemia; M81.0 Age-related osteoporosis without current pathological fracture; M85.88 Other specified disorders of bone density and structure, other site
CPT/HCPCS: 77080; 82306; 82607; 93005

== ENCOUNTER → 2024-01-26 15:52 | Outpatient (BNVA) | payer MEDICARE, SELFPAY | PROVIDERS: PCP Clinical Nurse Specialist Adult Health; Visit Provider Internal Medicine | DX: I15.8 Other secondary hypertension (principal); R55 Syncope and collapse | CPT/HCPCS: 99214 ==

== ENCOUNTER 2024-01-31 14:06 | Emergency (ER) | payer MEDICARE, SELFPAY ==
[2024-01-31 14:15] VITALS: BP 163/80; PULSE 58; RESP 16; TEMP 36.8; O2SAT 97
--- NOTE | 2024-01-31 14:21 | ECG_ITS ---
[facility] Test Date: 2024-01-31 Pat Name: Lory Jean Department: Room: Gender: Female Aix Architect: : 1955 Requested By: Jesus Manuel Marina Order Number: [id number] Sri MD: Katalina Coello M.D. Measurements Intervals [place] Rate: 60 P: 91 OR: 194 QRS: 50 QRSD: 89 T: 38 QT: 450 QTc: 451 Interpretive Statements SINUS RHYTHM Nonspecific T wave changes Compared to ECG 12/20/2023 11:27:25 No significant changes Electronically Signed On 01-31-2024 22:48:55 CDT by Katalina Coello M.D. [id number]
--- NOTE | 2024-01-31 15:22 | XRR_ITS ---
PROCEDURE INFORMATION: Exam: XR Chest Exam date and time: 01/31/2024 3:26 PM Age: 68 years old Clinical indication: Angina pectoris; Patient HX: Substernal chest pain and back pain. Headache, nausea, SOB. All started Wednesday and has been constant. States that she was at water aerobics when she got dizzy and lightheaded, chest pain. HX HTN TECHNIQUE: Imaging protocol: Radiologic exam of the chest. Views: 1 view. COMPARISON: CR XR chest 1V portable [id number] 07/07/2023 12:13 PM FINDINGS: Tubes, catheters and devices: Implanted loop recorder in the left chest wall. Lungs: There is no consolidation. Pleural spaces: There is no pleural effusion or pneumothorax. Heart/Mediastinum: There is mild enlargement of the cardiac silhouette. Bones/joints: Bones are unremarkable. XR/XR chest 1V portable [id number] IMPRESSION: No acute findings.
[2024-01-31 15:46] LABS: Basophils % 0.3 %; Eosinophils # 0.1 10^3/uL (0.0-0.8); Eosinophils % 1.7 %; Hematocrit 38.8 % (36-47); Lymphocytes # 1.4 10^3/uL (0.8-4.8); Lymphocytes % 21.2 %; Mean Corpuscular HGB Conc 30.7 g/dL (30-55); Mean Corpuscular Volume 94.6 fl (85-98); Mean Platelet Volume 11.9 fL (7.4-10.4); Monocytes # 0.4 10^3/uL (0.2-0.9); Monocytes % 6.1 %; Neutrophils # 4.49 10^3/uL (1.8-7.7); Neutrophils % 70.4 %; Nucleated Red Blood Cells % 0 %; Platelet Count 226 10^3/cmm (157-399); Red Cell Distribution Width 13.6 % (12.1-15.1); White Blood Count 6.38 10^3/uL (3.29-11.43)
[2024-01-31 16:17] LABS: Troponin(5th) Baseline 9 ng/L (0-10)
[2024-01-31 16:21] LABS: Alanine Aminotransferase 10 U/L (0-33); Albumin Level 4.2 g/dL (3.5-5.2); Alkaline Phosphatase 291 U/L (35-105); Anion Gap 16.8 (5-19); Aspartate Amino Transferase 14 U/L (0-32); Blood Urea Nitrogen 18 mg/dL (8-23); Calcium 8.4 mg/dL (8.5-10.5); Carbon Dioxide 26 mmol/L (22-29); Chloride 99 mmol/L (98-107); Creatinine Clr Calc Pharmacy 61.8957; Globulin 2.3 g/dL (1.3-4.6); Glomerular Filtration Rate 55.5 mL/min (90-130); Glucose 94 mg/dL (65-115); NT Pro B Type Natriuretic Pept 953 pg/mL (0-125); Osmolality Calculated 288 mOsm/kg (285-295); Potassium 3.8 mmol/L (3.5-5.1); Sodium 138 mmol/L (136-145); Total Bilirubin 0.5 mg/dL (0.15-1.2); Total Protein 6.5 g/dL (6.6-8.7)
[2024-01-31] MEDS: hyDRALAzine 20 mg/mL INJ 1 mL 10 MG IVP (17:17)
--- NOTE | 2024-01-31 17:22 | ECG_ITS ---
[facility] Test Date: 2024-01-31 Pat Name: Lory Jean Department: Room: Gender: Female Vaccinator: : 1955 Requested By: Amada Wells Order Number: [id number] Fierro MD: Katalina Coello M.D. Measurements Intervals [place] Rate: 52 P: 100 VT: 214 QRS: 78 QRSD: 94 T: 50 QT: 500 QTc: 467 Interpretive Statements SINUS BRADYCARDIA WITH FIRST DEGREE AV BLOCK PROLONGED QT INTERVAL Compared to ECG 01/31/2024 14:07:39 First degree AV block now present Prolonged QT interval now present Sinus rhythm no longer present Electronically Signed On 01-31-2024 23:00:14 CDT by Katalina Coello M.D. [email or web address] adult care [email or web address] Media, [id number]
[2024-01-31 17:47] VITALS: BP 175/87; PULSE 59; RESP 18; O2SAT 97
[2024-01-31 17:50] LABS: Troponin 5 2HR 7.64 ng/L (0-10)
[2024-01-31 17:52] LABS: Troponin 5 2HR Delta -1.36 ABS# (0-10)
--- NOTE | 2024-01-31 18:21 | ED_ITS ---
HPI - Chest Pain 2 General: Chief Complaint: Chest Pain Stated Complaint: chest pains, low hr Time Seen by Provider: 01/31/24 16:25 History of Present Illness: 68-year-old female presents emerged part with complaint of elevated blood pressure. Saw cardiology started on new blood pressure medication which she just darted today. States her blood pressure has been as high as 220 systolic at home. States has been going up and down quite a bit. States that she has had intermittent chest pain and fatigue and headache associated with it. Related Data Home Medications Medication Instructions Recorded Confirmed primidone 50 mg tablet 50 mg PO BID 02/19/23 01/31/24 Previous Rx's Medication Instructions Recorded amlodipine 10 mg tablet 10 mg PO DAILY #90 tabs 07/12/23 clonidine HCl 0.1 mg tablet 0.1 mg PO Q1H PRN hypertensive 07/12/23 emergency #30 tabs losartan 100 mg tablet 100 mg PO DAILY #90 tabs 08/24/23 escitalopram oxalate 20 mg tablet 20 mg PO QPM #90 tabs 11/22/23 metoprolol tartrate 25 mg tablet 25 mg PO BID #60 tabs 12/20/23 calcium carbonate (Antacid 200 mg PO BID #60 tabs 01/25/24 (calcium carbonate)) clonazepam 1 mg tablet 2 mg (2 x 1 mg) PO BEDTIME #60 tabs 01/25/24 hydrochlorothiazide 25 mg tablet 25 mg PO DAILY #30 tabs 01/25/24 hydralazine 50 mg tablet 50 mg PO TID #270 tabs 01/26/24 Allergies Allergy/AdvReac Type Severity Reaction Status Date / Time adhesive Allergy ALGY-Rash Verified 01/31/24 14:22 morphine Allergy ALGY-Anaphy Verified 01/31/24 14:22 laxis Penicillins Allergy ALGY-Rash Verified 01/31/24 14:22 PFSH ED 2 PFSH: Medical History Vitamin D deficiency Vitamin B12 deficiency Thyroid nodule Essential tremor Generalized osteoarthritis Hx of suicide attempt Chronic headaches Generalized anxiety disorder Abdominal hernia Hiatal hernia Hypertension Surgical History History of left knee replacement Hx of tonsillectomy Hx of hysterectomy Hx of cholecystectomy Hx of gastric bypass Family History Other Hypertension Social History Smoking and tobacco/nicotine status: never used tobacco/nicotine Alcohol intake: never Substance/Drug Use: never Physical Exam 2 Const: COMMON NORMALS: no acute distress, average body habitus, patient oriented x3, no limitations, healthy appearing, alert and well nourished Neck/C-Spine: COMMON NORMALS: no JVD Resp: COMMON NORMALS: normal respiratory effort, No retractions, No use of accessory muscles, clear to auscultation bilaterally and percussion normal A USCULTATION: clear to auscultation bilaterally PERCUSSION: percussion normal Cardio: COMMON NORMALS: no JVD, regular rate, regular rhythm, S1 normal heart sound present, S2 normal heart sound present, No gallops present (Cardio), No clicks present (Cardio), No murmurs present (Cardio), No rub (Cardio) and Peripheral pulses 2+ throughout RATE: regular rate RHYTHM: regular rhythm HEART SOUNDS: S1 normal heart sound present and S2 normal heart sound present PERIPHERAL PULSES: Peripheral pulses 2+ throughout GI: COMMON NORMALS: Normal to inspection, nondistended, normoactive bowel sounds present, Soft to palpation, non-tender, No hepatosplenomegaly present, no masses and no bruits PALPATION: Yes Soft to palpation and Yes No hepatosplenomegaly present Neuro: COMMON NORMALS: patient oriented x3 SENSORIUM/ORIENTATION: Yes alert Course 2 Vital Signs: Vital signs: Vital Signs Temperature 98.2 F 01/31/24 14:15 Pulse Rate 59 L 01/31/24 17:47 Respiratory Rate 18 01/31/24 17:47 Blood Pressure 175/87 01/31/24 17:47 Pulse Oximetry 97 01/31/24 17:47 Oxygen Delivery Me thod Room Air 01/31/24 17:47 MDM - Chest Pain Medical Decision Making 68-year-old female presents emerged part with complaint of elevated blood pressure. Saw cardiology started on new blood pressure medication which she just darted today. States her blood pressure has been as high as 220 systolic at home. States has been going up and down quite a bit. States that she has had intermittent chest pain and fatigue and headache associated with it. No significant abnormality noted on labs or imaging. Chest x-ray without acute disease. EKG with nonspecific ST and T wave changes. No ischemic changes. Patient blood pressure has improved somewhat here in the emergency department with treatment although still elevated. Unfortunately she just tarted her other blood pressure medication today so too soon to see if this is going to make any significant change or not yet. Discussed with patient to go ahead and continue taking her blood pressure medications and keep a good blood pressure diary and follow-up with PCP or cardiology in 1 to 2 weeks with the diary to see if further medication changes need to be made. Lab Data 01/31/24 15:38 01/31/24 15:38 Radiology Impressions Chest X-Ray 01/31/24 15:22 IMPRESSION: No acute findings. Laboratory Results WBC 6.38 10^3/uL (3.29-11.43) 01/31/24 15:38 RBC 4.10 10^6/uL (3.85-5.65) 01/31/24 15:38 Hgb 11.90 g/dL (11.27-16.99) 01/31/24 15:38 Hct 38.8 % (36-47) 01/31/24 15:38 MCV 94.6 fl (85-98) 01/31/24 15:38 MCH 29.0 pg (27-33) 01/31/24 15:38 MCHC 30.7 g/dL (30-55) 01/31/24 15:38 RDW 13.6 % (12.1-15.1) 01/31/24 15:38 Plt Count 226 10^3/cmm (157-399) 01/31/24 15:38 MPV 11.9 fL (7.4-10.4) H 01/31/24 15:38 Neut % (Auto) 70.4 % 01/31/24 15:38 Lymph % (Auto) 21.2 % 01/31/24 15:38 [place] % (Auto) 6.1 % 01/31/24 15:38 Eos % (Auto) 1.7 % 01/31/24 15:38 Baso % (Auto) 0.3 % 01/31/24 15:38 Neut # (Auto) 4.49 10^3/uL (1.8-7.7) 01/31/24 15:38 Lymph # (Auto) 1.4 10^3/uL (0.8-4.8) 01/31/24 15:38 [place] # (Auto) 0.4 10^3/uL (0.2-0.9) 01/31/24 15:38 Eos # (Auto) 0.1 10^3/uL (0.0-0.8) 01/31/24 15:38 Baso # (Auto) 0.0 10^3/uL (0.0-0.1) 01/31/24 15:38 Nucleated RBC % (auto) 0 % 01/31/24 15:38 Nucleated RBCs # 0.0 /100WBC 01/31/24 15:38 Sodium 138 mmol/L (136-145) 01/31/24 15:38 Potassium 3.8 mmol/L (3.5-5.1) 01/31/24 15:38 Chloride 99 mmol/L (98-107) 01/31/24 15:38 Carbon Dioxide 26 mmol/L (22-29) 01/31/24 15:38 Anion Gap 16.8 (5-19) 01/31/24 15:38 BUN 18 mg/dL (8-23) 01/31/24 15:38 Creatinine 1.0 mg/dL (0.5-0.9) H 01/31/24 15:38 GFR Calculation 55.5 mL/min (90-130) L 01/31/24 15:38 Glucose 94 mg/dL (65-115) 01/31/24 15:38 Calculated Osmolality 288 mOsm/kg (285-295) 01/31/24 15:38 Calcium 8.4 mg/dL (8.5-10.5) L 01/31/24 15:38 Total Bilirubin 0.5 mg/dL (0.15-1.2) 01/31/24 15:38 AST 14 U/L (0-32) 01/31/24 15:38 ALT 10 U/L (0-33) 01/31/24 15:38 Alkaline Phosphatase 291 U/L (35-105) H 01/31/24 15:38 Troponin T Baseline 9 ng/L (0-10) 01/31/24 15:38 Troponin T 120 Minute 7.64 ng/L (0-10) 01/31/24 17:25 Delta Troponin T -1.36 ABS# (0-10) L 01/31/24 17:25 NT-Pro-B Natriuret Pep 953 pg/mL (0-125) H 01/31/24 15:38 Total Protein 6.5 g/dL (6.6-8.7) L 01/31/24 15:38 Albumin 4.2 g/dL (3.5-5.2) 01/31/24 15:38 Globulin 2.3 g/dL (1.3-4.6) 01/31/24 15:38 All radiology interpretation(s) finalized by discharge Discharge Plan Discharge Patient Disposition: Home Clinical Impression: Hypertension Qualifiers: Hypertension type: other secondary hypertension Qualified Code(s): I15.8 - Other secondary hypertension Condition: Stable Prescriptions: No Action primidone 50 mg tablet 50 mg PO BID Patient Comments: states she is taking 100 mg at night only escitalopram oxalate 20 mg tablet 20 mg PO QPM Qty: 90 3RF metoprolol tartrate 25 mg tablet 25 mg PO BID Qty: 60 2RF Rx Instructions: Hold if HR < 60 amlodipine 10 mg tablet 10 mg PO DAILY Qty: 90 3RF clonidine HCl 0.1 mg tablet 0.1 mg PO Q1H PRN (Reason: hypertensive emergency) Qty: 30 0RF Rx Instructions: do not exceed 3 doses per 24 hrs. use if SBP > 180 hydralazine 50 mg tablet 50 mg PO TID Qty: 270 3RF hydrochlorothiazide 25 mg tablet 25 mg PO DAILY Qty: 30 11RF clonazepam 1 mg tablet 2 mg PO BEDTIME Qty: 60 2RF losartan 100 mg tablet 100 mg PO DAILY Qty: 90 3RF calcium carbonate [Antacid (calcium carbonate)] 200 mg calcium (500 mg) tablet,chewable 200 mg PO BID Qty: 60 0RF Discharge Orders: Discharge ED (Routine); Ordered 01/31/24 Ordered By: Hitesh Heredia Referrals: Timur Fernandes STUDIO CAMERA OPERATOR [Primary Care Provider] - Patient Instructions: Opioid Safety, Pain Management Activity Restrictions/Additional Instructions: Take all blood pressure medications as directed. Keep a good blood pressure diary at home and monitor your blood pressure twice a day and write it down. Take your blood pressure diary to PCP or cardiology within the next week or 2 to see if medications need to be adjusted further. Avoid salt. Drink plenty of water. Coding Level of Care Code ED Discount Clerk for Massiel Bonilla
[2024-01-31] MEDS: acetaminophen 325 mg Tablet 650 MG PO (18:31)
[2024-01-31 18:32] VITALS: BP 198/88
[2024-01-31] MEDS: cloNIDine 0.1 mg Tablet PO (18:32)
[2024-01-31 18:33] VITALS: BP 198/88; PULSE 67; O2SAT 95
[2024-01-31 18:46] VITALS: BP 178/90; PULSE 60; RESP 16; O2SAT 94
== END 2024-01-31 18:49 | disposition home or self-care (01) ==
PROVIDERS: Physician Assistant; Emergency Provider Emergency Medicine; PCP Clinical Nurse Specialist Adult Health
DX: I15.8 Other secondary hypertension (principal); Z98.84 Bariatric surgery status
CPT/HCPCS: 36415; 71045; 80053; 83880; 84484; 85025; 93005; 96374; 99285; J0360

== ENCOUNTER → 2024-04-06 11:06 | Outpatient (BNVA) | payer MEDICARE, SELFPAY | PROVIDERS: PCP Family Medicine; Visit Provider Family Medicine | DX: Z13.6 Encounter for screening for cardiovascular disorders (principal); R74.8 Abnormal levels of other serum enzymes; R73.9 Hyperglycemia, unspecified; I15.8 Other secondary hypertension | CPT/HCPCS: 80061; 83036; 84075; 84080 ==

== ENCOUNTER 2024-04-28 12:36 | Outpatient (CLI) | payer MEDICARE, SELFPAY ==
[2024-04-28 13:10] LABS: Alanine Aminotransferase 12 U/L (0-33); Alkaline Phosphatase 230 U/L (35-105); Anion Gap 12.8 (5-19); Aspartate Amino Transferase 16 U/L (0-32); Carbon Dioxide 26 mmol/L (22-29); Chloride 104 mmol/L (98-107); Globulin 2.8 g/dL (1.3-4.6); Glucose 94 mg/dL (65-115); Potassium 4.8 mmol/L (3.5-5.1); Sodium 138 mmol/L (136-145); Total Bilirubin 0.5 mg/dL (0.15-1.2); Total Protein 6.8 g/dL (6.6-8.7)
[2024-04-28 13:24] LABS: Vitamin B12 848 pg/mL (232-1245)
[2024-04-28 14:17] LABS: Blood Urea Nitrogen 22 mg/dL (8-23); Calcium 8.9 mg/dL (8.5-10.5); Glomerular Filtration Rate 55.5 mL/min (90-130); Osmolality Calculated 289 mOsm/kg (285-295)
== END 2024-04-28 12:37 | disposition home or self-care (01) ==
LOC: LAB 12:38
PROVIDERS: PCP Family Medicine; Visit Provider Family Medicine
DX: E53.8 Deficiency of other specified B group vitamins (principal); I15.8 Other secondary hypertension; L29.9 Pruritus, unspecified
CPT/HCPCS: 36415; 80053; 82607

== ENCOUNTER 2024-06-30 10:22 | Outpatient (CLI) | payer MEDICARE, SELFPAY ==
--- NOTE | 2024-06-30 10:26 | MM_ITS ---
WS: [id number] Bilateral screening 3D tomosynthesis digital mammogram, 06/30/2024 10:29 AM Clinical Data: SCREENING Comparison: None. Findings: No spiculated masses or clustered calcifications are seen. There are no secondary signs of carcinoma . There are 2 central right breast nodules at approximately the 12 o'clock position adjacent to one a nother. One measures 2.0 cm and other is 2.5 cm and is 8.15 cm posterior to the nipple on the cc view . On the MLO view the nodules may be 9.3 cm posterior to the nipple, again in the 12 o'clock position MM/MM [facility] tomosynthesis [id number] Impression: 1. 2 small density central portion of the right breast one measuring 2.3 cm and the other 2.5 cm in approximate 12 o'clock position. Recommend compression cc view of the right breast and ML view of the right [address]. Consider right breast ultrasound. BIRADS: 0 - Incomplete: Need additional imaging evaluation FOLLOW UP: See Report DENSITY: The breasts are heterogeneously dense, which may obscure small masses. The CAD clerk checker was used
== END 2024-06-30 10:23 | disposition home or self-care (01) ==
LOC: RAD 10:23
PROVIDERS: PCP Family Medicine; Visit Provider Family Medicine
DX: Z12.31 Encounter for screening mammogram for malignant neoplasm of breast (principal); N63.15 Unspecified lump in the right breast, overlapping quadrants; R92.333 Mammographic heterogeneous density, bilateral breasts
CPT/HCPCS: 77063; 77067

== ENCOUNTER 2024-07-13 09:56 | Outpatient (CLI) | payer MEDICARE, SELFPAY ==
--- NOTE | 2024-07-13 10:00 | MM_ITS ---
WS: [email or web address] RIGHT 3D TOMOSYNTHESIS DIGITAL MAMMOGRAPHY WITH CAD CLINICAL INFORMATION: abnormal R mammo HISTORY: Additional views COMPARISON: 07/13/2024 TECHNIQUE: 3 views of the right breast were obtained. FINDINGS: Scattered fibroglandular densities of the right breast. Previously described nodular densities in the central RIGHT breast compress out today on the spot compression views. No new suspicious abnormalities. Recommend return to annual screening mammography. MM/MM diag RT tomosynthesis [id number] IMPRESSION: DENSITY: There are scattered areas of fibroglandular density. BI-RADS: 2 - Benign. FOLLOW UP: 1 Year Follow-up Recommend return to annual screening mammography.
== END 2024-07-13 09:57 | disposition home or self-care (01) ==
PROVIDERS: PCP Family Medicine; Visit Provider Family Medicine
DX: N63.10 Unspecified lump in the right breast, unspecified quadrant (principal); R92.321 Mammographic fibroglandular density, right breast
CPT/HCPCS: 77061; G0279

== ENCOUNTER → 2024-09-18 11:29 | Outpatient (BNVA) | payer MEDICARE, SELFPAY | PROVIDERS: PCP Family Medicine; Visit Provider Registered Nurse Neonatal Intensive Care | DX: S80.02XA Contusion of left knee, initial encounter (principal); S92.515A Nondisplaced fracture of proximal phalanx of left lesser toe(s), initial encounter for closed fracture; W19.XXXA Unspecified fall, initial encounter | CPT/HCPCS: 73562; 73630 ==

== ENCOUNTER 2024-10-20 15:51 | Outpatient (CLI) | payer MEDICARE, SELFPAY ==
[2024-10-20 16:12] LABS: Basophils % 0.4 %; Eosinophils # 0.1 10^3/uL (0.0-0.8); Eosinophils % 1.4 %; Hematocrit 36.7 % (36-47); Lymphocytes # 1.6 10^3/uL (0.8-4.8); Lymphocytes % 22.8 %; Mean Corpuscular HGB Conc 30.2 g/dL (30-55); Mean Corpuscular Hemoglobin 26.8 pg (27-33); Mean Corpuscular Volume 88.6 fl (85-98); Mean Platelet Volume 12.1 fL (7.4-10.4); Monocytes # 0.4 10^3/uL (0.2-0.9); Monocytes % 6.2 %; Neutrophils # 4.89 10^3/uL (1.8-7.7); Neutrophils % 69.1 %; Nucleated Red Blood Cells % 0 %; Platelet Count 222 10^3/cmm (157-399); Red Blood Count 4.14 10^6/uL (3.85-5.65); Red Cell Distribution Width 14.2 % (12.1-15.1); White Blood Count 7.09 10^3/uL (3.29-11.43)
[2024-10-20 16:44] LABS: Troponin T (5th) Once 8 ng/L (0-10)
[2024-10-20 17:02] LABS: Alanine Aminotransferase 10 U/L (0-33); Alkaline Phosphatase 236 U/L (35-105); Anion Gap 18.4 (5-19); Aspartate Amino Transferase 16 U/L (0-32); Blood Urea Nitrogen 17 mg/dL (8-23); Calcium 8.6 mg/dL (8.5-10.5); Carbon Dioxide 23 mmol/L (22-29); Chloride 106 mmol/L (98-107); Globulin 2.9 g/dL (1.3-4.6); Glomerular Filtration Rate 62.6 mL/min (90-130); Glucose 88 mg/dL (65-115); Osmolality Calculated 297 mOsm/kg (285-295); Potassium 4.4 mmol/L (3.5-5.1); Sodium 143 mmol/L (136-145); Thyroid Stimulating Hormone 2.76 uIU/mL (0.27-4.20); Total Bilirubin 0.6 mg/dL (0.15-1.2); Total Protein 6.9 g/dL (6.6-8.7); Vitamin B12 225 pg/mL (232-1245)
== END 2024-10-20 15:52 | disposition home or self-care (01) ==
LOC: LAB 15:53
PROVIDERS: PCP Family Medicine; Visit Provider Family Medicine
DX: R07.9 Chest pain, unspecified (principal); E53.8 Deficiency of other specified B group vitamins; F41.1 Generalized anxiety disorder
CPT/HCPCS: 36415; 80053; 82607; 84443; 84484; 85025

== ENCOUNTER 2025-01-19 10:50 | Outpatient (CLI) | payer MEDICARE, OTHER, SELFPAY ==
--- NOTE | 2025-01-19 11:00 | US_ITS ---
WS: [id number] THYROID ULTRASOUND HISTORY: thyroid nodules COMPARISON: 07/22/2023 Right lobe: 1.5 cm x 1.7 cm x 3.4 cm (w x ap x l). Volume: 4.1 cm3. Normal sized thyroid. Hypoechoic nodule well-circumscribed with no echogenic foci in the mid gland measures 0.7 x 0.5 x 1.0 cm. No increase in size. No new or enlarging nodule. Left lobe: 1.1 cm x 1.5 cm x 3.7 cm (w x ap x l). Volume: 3.1 cm3. Exophytic solid mass from the inferior lateral LEFT thyroid is identified. This nodule is very vascular measures 0.9 x 1.0 x 1.4 cm. Similar to the prior study without increase in size. Isthmus: 0.1 cm. US/US thyroid [id number] IMPRESSION: TI-RADS 3; bilateral thyroid nodules. Not significantly changed since 07/22/2023 . Recommend yearly continued follow-up by ultrasound.
== END 2025-01-19 10:51 | disposition home or self-care (01) ==
LOC: RAD 10:51
PROVIDERS: PCP Family Medicine; Visit Provider Family Medicine
DX: E04.1 Nontoxic single thyroid nodule (principal)
CPT/HCPCS: 76536

== ENCOUNTER → 2025-01-25 09:43 | Outpatient (BNVA) | payer MEDICARE, OTHER, SELFPAY | PROVIDERS: PCP Family Medicine; Visit Provider Student in an Organized Health Care Education/Training Program | DX: Z12.11 Encounter for screening for malignant neoplasm of colon (principal) | CPT/HCPCS: 99024; 99204 ==

== ENCOUNTER 2025-02-27 11:01 | Day surgery (SDC) | payer MEDICARE, OTHER, SELFPAY ==
[2025-02-27 11:40] VITALS: BMI 31.6
[2025-02-27 11:41] VITALS: BP 181/84; PULSE 62; RESP 18; TEMP 36.3; O2SAT 97
--- NOTE | 2025-02-27 11:44 | ANES.PREANE2 ---
Pre-Anesthetic Assessment Height/Weight: Height 1.65 m Weight 86.183 kg Temp Pulse Resp BP Pulse Ox O2 Del Method 97.4 F L 62 18 181/84 97 Room Air 02/27/25 11:41 02/27/25 11:41 02/27/25 11:41 02/27/25 11:41 02/27/25 11:41 02/27/25 11:41 Preop Diagnosis: screening Operation Date: 02/27/25 12:30 Proposed Procedures p Colonoscopy [id number] [id number] Z12.11(Not Applicable) - Jose Alfredo Husain MD Was Beta [place] taken within 24 hours: Yes Was Clonidine taken within 24 hours: Yes Last intake: Intake Last Liquid Date 02/26/25 Last Liquid Time 21:00 Last Solid Date 02/25/25 Last Intake: 23:00 Social No alcohol and No tobacco Exam oriented x 3 Airway Submandibular: within normal limits Cervical ROM: within normal limits Mallampati: Class II Dentition: full History/ROS No significant history except as noted Pulmonary None reported CV/HEM Hypertension None reported Hepatic None reported GI None reported Metabolic None reported Musc/skel None reported Neuropsych None reported Anesthetic Plan ASA status: 3 Anesthesia: Anesthesia Evaluation Risk of > 500 ml blood loss (7ml/kg in children): No Medications/Allergies Home Medications ?Medication ?Instructions ?Recorded ?Confirmed ?Last Taken ?Type primidone 50 mg tablet 50 mg PO TID 03/23/24 02/21/25 02/20/25 History escitalopram oxalate 20 mg tablet 20 mg PO QPM #90 tabs 05/25/24 02/21/25 02/19/25 Rx clonidine HCl 0.1 mg tablet 0.1 mg PO Q1H PRN hypertensive 10/20/24 02/21/25 Unknown Rx emergency 2 months #120 tabs cyanocobalamin (vitamin B-12) 1,000 mcg IM .qwk #10 ea 11/24/24 02/21/25 Unknown Rx 1,000 mcg/mL injection kit syringe with needle 3 mL 23 gauge #100 ea 11/24/24 01/25/25 Unknown Rx x 1 1/2 (CareTouch Luer Lock Syringe with needle) clonazepam 1 mg tablet 2 mg (2 x 1 mg) PO BEDTIME #60 tabs 02/13/25 02/21/25 02/20/25 Rx metoprolol tartrate 25 mg tablet 12.5 mg PO BEDTIME 02/21/25 02/26/25 02/20/25 History chlorthalidone 25 mg tablet 50 mg PO BEDTIME 02/26/25 02/26/25 02/20/25 History losartan 100 mg tablet 100 mg PO BEDTIME 02/26/25 02/26/25 02/20/25 History Allergies Allergy/AdvReac Type Severity Reaction Status Date / Time adhesive Allergy ALGY-Rash Verified 02/21/25 10:21 morphine Allergy ALGY-Anaphy Verified 02/21/25 10:21 laxis Penicillins Allergy ALGY-Rash Verified 02/21/25 10:21 Current Medications Generic Name Dose Route Start Last Admin Trade Name Freq PRN Reason Stop Dose Admin Sodium Chloride 1,000 mls @ 15 mls/hr 02/27/25 11:17 02/27/25 11:40 Sodium Chloride 0.9% IV 02/28/25 11:16 15 mls/hr .Q24H PRN Administration COLONOSCOPY FLUIDS PFSH Anesthesia Medical History Obesity (BMI 30.0-34.9) De Quervain's tenosynovitis, left Abnormal alkaline phosphatase test isoenzymes normal; prob due to Mirna-en-Y Major depression Insomnia Vitamin D deficiency Vitamin B12 deficiency did not absorb sublingual B12 Thyroid nodule on US 2023 Essential tremor sees neurologist Generalized osteoarthritis Hx of suicide attempt Chronic headaches Generalized anxiety disorder Hypertension Surgical History (Updated 01/25/25 @ 09:54 by DON Disla) Hx of umbilical hernia repair History of repair of hiatal hernia History of left knee replacement Hx of tonsillectomy Hx of hysterectomy ovaries remaining; done for prolapse; no cancer Hx of cholecystectomy Hx of gastric bypass Mirna en Y Family History Mother Cancer melanoma Alzheimer's dementia Father Lung cancer Other Hypertension Social History Smoking and tobacco/nicotine status: never used tobacco/nicotine Alcohol intake: never Substance/Drug Use: never Household members: spouse and other Details: raising great grandson and now grandaughter Marital status: Number of children: 4 Highest education level completed: GED or Equivalent Current occupational status: retired Current occupation: works at [employer] Previous occupational history: [employer] Anesthesia Cardiac Studies: Echocardiogram 05/21/23 Sestamibi Stress Test (Cardiology) 09/30/20 Cardiac Event Monitor 09/05/20
--- NOTE | 2025-02-27 12:32 | W.PM.OPSFHP ---
Same Day Surgery H&P Indication for Procedure/HPI DATE OF PROCEDURE: February 27, 2025 CHIEF COMPLAINT/INDICATIONFOR SURGICAL PROCEDURE: screening colonoscopy PREOP DIAGNOSIS: screening colonoscopy PLANNED PROCEDURE: Operation Date: 02/27/25 12:30 Proposed Procedures p Colonoscopy [id number] G0121 Z12.11(Not Applicable) - Jose Alfredo Husain MD Medications/Allergies* Home Medications ?Medication ?Instructions ?Recorded ?Confirmed ?Type primidone 50 mg tablet 50 mg PO TID 03/23/24 02/21/25 History metoprolol tartrate 25 mg tablet 12.5 mg PO BEDTIME 02/21/25 02/26/25 History chlorthalidone 25 mg tablet 50 mg PO BEDTIME 02/26/25 02/26/25 History losartan 100 mg tablet 100 mg PO BEDTIME 02/26/25 02/26/25 History Allergies/Adverse Reactions Allergy/AdvReac Type Severity Reaction Status Date / Time adhesive Allergy ALGY-Rash Verified 02/21/25 10:21 morphine Allergy ALGY-Anaphy Verified 02/21/25 10:21 laxis Penicillins Allergy ALGY-Rash Verified 02/21/25 10:21 Current Medications: Generic Name Dose Route Start Last Admin Trade Name Freq PRN Reason Stop Dose Admin Sodium Chloride 1,000 mls @ 15 mls/hr 02/27/25 11:17 02/27/25 11:40 Sodium Chloride 0.9% IV 02/28/25 11:16 15 mls/hr .Q24H PRN Administration COLONOSCOPY FLUIDS Pertinent History/Comorbid Conditions* Medical History (Updated 01/12/25 @ 14:05 by Monisha Seals MD) Obesity (BMI 30.0-34.9) De Quervain's tenosynovitis, left Abnormal alkaline phosphatase test isoenzymes normal; prob due to Mirna-en-Y Major depression Insomnia Vitamin D deficiency Vitamin B12 deficiency did not absorb sublingual B12 Thyroid nodule on US 2023 Essential tremor sees neurologist Generalized osteoarthritis Hx of suicide attempt Chronic headaches Generalized anxiety disorder Hypertension Surgical History (Updated 04/06/24 @ 10:47 by Monisha Seals MD) Hx of umbilical hernia repair History of repair of hiatal hernia History of left knee replacement Hx of tonsillectomy Hx of hysterectomy ovaries remaining; done for prolapse; no cancer Hx of cholecystectomy Hx of gastric bypass Mirna en Y Family History (Updated 04/06/24 @ 10:48 by Monisha Seals MD) Alzheimer's dementia Mother Lung cancer Father Cancer Mother melanoma Hypertension Social History Smoking and tobacco/nicotine status: never used tobacco/nicotine Alcohol intake: never Substance/Drug Use: never Household members: spouse and other Details: raising great grandson and now grandaughter Marital status: Number of children: 4 Highest education level completed: GED or Equivalent Current occupational status: retired 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
--- NOTE | 2025-02-27 12:50 | SUR.OPER ---
Cecum time 1250
--- NOTE | 2025-02-27 12:50 | SUR.OPER ---
Cecum time 1250
[2025-02-27 13:05] VITALS: BP 134/58; PULSE 56; RESP 14; TEMP 36.3; O2SAT 97
[2025-02-27 13:25] VITALS: BP 151/64; PULSE 51; RESP 16; O2SAT 95
[2025-02-27 13:51] VITALS: BP 166/70; PULSE 52; RESP 18; O2SAT 96
--- NOTE | 2025-02-27 13:53 | PC.NURSE ---
pt cont. drowsy. states i'm dizzy . pt encouraged to lay on side and to pasds air out.
[2025-02-27 14:06] VITALS: BP 173/80; PULSE 54; RESP 18; O2SAT 97
--- NOTE | 2025-02-27 14:10 | ANE.PACU2 ---
Inpatient post-anesthesia follow up: Airway intact: Yes Vital signs: Temperature 97.3 F Pulse Rate 54 Respiratory Rate 18 Blood Pressure 173/80 Pulse Oximetry 97 Oxygen Delivery Me thod Room Air Oxygen Flow Rate Fraction of Inspir ed Oxygen Hydration adequate: Yes Nausea and vomiting: No Pain level: 1 Mental status: Baseline
== END 2025-02-27 14:13 | disposition home or self-care (01) ==
PROVIDERS: PCP Family Medicine; Visit Provider Student in an Organized Health Care Education/Training Program
PROC: 0DJD8ZZ Inspection of Lower Intestinal Tract, Via Natural or Artificial Opening Endoscopic (ICD-10-PCS; CPT 45378; principal; 2025-02-27 12:30)
DX: Z12.11 Encounter for screening for malignant neoplasm of colon (principal); D12.3 Benign neoplasm of transverse colon; I10 Essential (primary) hypertension; F41.8 Other specified anxiety disorders; E66.9 Obesity, unspecified; Z68.31 Body mass index [BMI] 31.0-31.9, adult
CPT/HCPCS: 45385; 88305; J7030

== ENCOUNTER → 2025-03-12 14:48 | Outpatient (BNVA) | payer MEDICARE, OTHER, SELFPAY | PROVIDERS: PCP Family Medicine; Visit Provider Student in an Organized Health Care Education/Training Program | DX: Z09 Encounter for follow-up examination after completed treatment for conditions other than malignant neoplasm (principal) | CPT/HCPCS: 99213 ==

== ENCOUNTER → 2025-04-13 13:40 | Outpatient (BNVA) | payer MEDICARE, OTHER, SELFPAY | PROVIDERS: PCP Family Medicine; Visit Provider Family Medicine | DX: I15.8 Other secondary hypertension (principal); Z98.84 Bariatric surgery status; E04.1 Nontoxic single thyroid nodule; E53.8 Deficiency of other specified B group vitamins; E55.9 Vitamin D deficiency, unspecified; R13.19 Other dysphagia; R42 Dizziness and giddiness; F41.1 Generalized anxiety disorder | CPT/HCPCS: 80053; 82306; 82607; 83540; 84439; 84443; 85025 ==